=== PATIENT | female | born 1960 | race Caucasian/White ===

== ENCOUNTER 2016-11-26 12:39 | Emergency (ER) | payer OTHER ==
[~2016-11-26 12:39] MED LIST: CYCLOBENZAPRINE10 MG PO; DUONEB IN; LEVAQUIN500 MG PO; PREDNISONE20 MG PO; PROAIR HFA IN; QVAR80 MCG IN; TRAMADOL HCL50 MG PO
--- NOTE | 2016-11-26 16:07 | DIAGNOSTIC IMAGING REPORT ---
PROCEDURE: XR CHEST 2 VIEW INDICATION: COPD, initial encounter TECHNIQUE: PA and lateral view. COMPARISON: Chest x-ray 01/17/2016 FINDINGS: Hyperinflation but lungs are clear. Cardiovascular structures are normal. Two stable mild to moderate mid thoracic spine compression fractures. IMPRESSION: 1. COPD 2. No acute changes
--- NOTE | 2016-11-26 16:29 | ED ORDER SUMMARY ---
..... Patient: CHAN JEFFRIES OrderSheet [facility] VisitID: [id number] [place] [address] 56y, F Registration Date/Time: 11/26/2016 ORDER SHEET Weight: 45.3 kg (stated) Allergies: Dilaudid, IV Contrast, Neurontin, Penicillins GENERAL ORDERS: Chest 2V Urgent (14:29 11/26/2016 Binta Moreau) (Ack 14:31 IJurca ER Tech1) (15:04 HOShaughebony R.N.) MEDICATION ORDERS: DuoNeb Neb Tx 1 unit dose (NOW) (14:11/26/2016 Binta Moreau) (15:04 HOShaughebony R.N.) Prednisone PO 40 mg (NOW) (14:11/26/2016 Binta Moreau) (15:30 HOShaughebony R.N.) Levofloxacin PO 500 mg (NOW) (16:26 11/26/2016 Binta Moreau) (16:50 HOShaughreemay R.N.) IV FLUIDS: ORDER SHEET NOTES: [Electronically signed by Anjel Calvo R.N. (16:51 11/26/2016)] [Electronically signed by Ovidio Mcdowell Dr. (22:43 11/26/2016)] [Electronically locked/signed by Anjel Calvo R.N. (16:51 11/26/2016)]
--- NOTE | 2016-11-26 16:29 | ED CLINICAL REPORT ---
Clinical Report - Physicians/Mid Levels [facility] [address] [place] [address] 11/26/2016 12:40 [facility]: [id number] Time Seen: 14:19; initial patient contact. Arrived- By private vehicle. Historian- patient. HISTORY OF PRESENT ILLNESS Chief Complaint: DYSPNEA and HISTORY OF CHRONIC OBSTRUCTIVE PULMONARY DISEASE. This started about 1 week ago and is still present and worsening. It was gradual in onset. The dyspnea is described as moderate. The patient has had sputum production, a cough and wheezing. No fever, sweating episodes, chills or dyspnea on exertion. No chest pain or discomfort, calf pain, foot swelling or orthopnea. No dizziness or palpitations. Similar symptoms previously: Several times. Recent medical care: The patient was seen recently in a clinic. REVIEW OF SYSTEMS The patient has had a nasal discharge and sinus drainage. No nausea or vomiting. All systems otherwise negative, except as recorded above. PAST HISTORY Emphysema. Dyspnea. Pneumonia. COPD - Chronic Obstructive Pulmonary Disease. ADDITIONAL SURGERIES: Appendectomy. Back Surgery. Carpal Tunnel Surgery. SOCIAL HISTORY Current every day smoker. No alcohol use or drug use. ADDITIONAL NOTES The nursing notes have been reviewed with agreement regarding the chief complaint, PMH and patient medications and allergies. PHYSICAL EXAM Vital Signs: Have been reviewed as normal. Appearance: Alert. No acute distress. Eyes: Eyes normal inspection. ENT: Pharynx normal. Neck: No jugular venous distention. CVS: Normal heart rate and rhythm. Heart sounds normal. Respiratory: Mild respiratory distress with accessory muscle use and retractions. Moderately prolonged expirations. Mildly decreased air movement diffusely over both lungs. Expiratory moderate bilateral wheezes present. Skin: Skin warm and dry. Normal skin color. No rash. Extremities: No calf tenderness. No lower extremity edema. Neuro: Oriented X 3. LABS, X-RAYS, AND EKG Chest X-ray: Moderate hyperinflation present on the right and left with flattening of the diaphragm and an increased AP diameter. Consistent with COPD. Normal heart size. No infiltrate. No pneumothorax. Views: PA and lateral. Technique: good. The X-rays were independently viewed by me, interpreted contemporaneously by me and discussed with the radiologist. Interpretation time: 1450. PROGRESS AND PROCEDURES Course of Care: 16:28 11/26/16. Prednisone 40 mg PO given. DuoNeb nebulizer treatment (1 unit dose) given. Physical exam findings are improved. Symptoms much better. Disposition: Discharged home in good and improved condition. Condition: good. CLINICAL IMPRESSION 11/26/2016 13:35 BP: 119/85. HR: 81. RR: 18. O2 saturation: 96%. Pain level now: 0/10. Vital Signs: have been reviewed. Blood pressure normal. Heart rate normal. Respiratory rate normal. Oxygen saturation normal. Acute exacerbation of COPD (emphysematous) INSTRUCTIONS Your Current Medications: CONTINUE TAKING THE FOLLOWING MEDICATIONS: Albuterol Inhalation. Cyclobenzaprine HCl Oral : 3x a day. DuoNeb Inhalation. Oxygen 1.5 L /nc at night only*. ProAir HFA Inhalation. Qvar Inhalation. TraMADol HCl Oral : 3x a day, for neck pain. Prescription Medications: Albuterol HFA oral inhaler: inhale 2 puffs every 4 hours as needed for wheezing, difficulty breathing or shortness of breath. Dispense one (1) unit. No refill. Levofloxacin 500 mg: take 1 tab orally every day for 4 days. No refills. (Start on 11/27/16) Prednisone 20 mg: take 2 orally every day for 4 days. Dispense sufficient quantity. No refills. (Start on 11/27/16) Follow-up: Follow up with your doctor in about two days. Call for an appointment. Screening today revealed the patient's blood pressure to be in the normal range. (Electronically signed by Ovidio Mcdowell Dr. 11/26/2016 22:43)
--- NOTE | 2016-11-26 16:29 | ED ORDER SUMMARY ---
..... Patient: CHAN JEFFRIES OrderSheet [facility] VisitID: [id number] [place] [address] 56y, F Registration Date/Time: 11/26/2016 ORDER SHEET Weight: 45.3 kg (stated) Allergies: Dilaudid, IV Contrast, Neurontin, Penicillins GENERAL ORDERS: Chest 2V Urgent (14:29 11/26/2016 Binta Moreau) (Ack 14:31 IJurca ER Tech1) (15:04 HOShaughebony R.N.) MEDICATION ORDERS: DuoNeb Neb Tx 1 unit dose (NOW) (14:11/26/2016 Binta Moreau) (15:04 HOShaughebony R.N.) Prednisone PO 40 mg (NOW) (14:11/26/2016 Binta Moreau) (15:30 HOShaughebony R.N.) Levofloxacin PO 500 mg (NOW) (16:26 11/26/2016 Binta Moreau) (16:50 HOShaughreemay R.N.) IV FLUIDS: ORDER SHEET NOTES: [Electronically signed by Anjel Calvo R.N. (16:51 11/26/2016)] [Electronically signed by Ovidio Mcdowell Dr. (22:43 11/26/2016)] [Electronically locked/signed by Anjel Calvo R.N. (16:51 11/26/2016)]
--- NOTE | 2016-11-26 16:29 | ED NURSING NOTES ---
Clinical Report - Nurses [facility] [address] [place] [address] 11/26/2016 12:40 [id number] Triage time 1251 PM. Chief Complaint: SHORTNESS OF BREATH and DIFFICULTY BREATHING. Alert. No acute distress. --13:00 Anjel Calvo R.N. 12:50 11/26/16. BP: 90/70. HR: 87. RR: 20. O2 saturation: 100% on nasal cannula at 3 liters/minute. RN notified. Temp: 98.3 F. Pain level now: 0. --13:00 Anjel Calvo R.N. Weight: 45.3 kg stated. Height/Length: 64 inches Per Patient. BMI: 17.2. --12:56 Anjel Calvo R.N. Medications Albuterol Inhalation. Cyclobenzaprine HCl Oral, 3x a day. DuoNeb Inhalation. Oxygen 1.5 L /nc at night only. ProAir HFA Inhalation. Qvar Inhalation. TraMADol HCl Oral, 3x a day (for neck pain ). --12:52 Anjel Calvo R.N. Allergies Dilaudid. IV Contrast. Neurontin. Penicillins. --12:52 Anjel Calvo R.N. History Arrived by private vehicle. Historian: family. Accompanied by family. Onset was gradual. (about 7 days ago). Treatment KIER DRIER: Recently seen in a medical facility; treatment- breathing treatment. PAST MEDICAL HX: Chronic obstructive pulmonary disease. SOCIAL HX: Light tobacco smoker (cigarette)- less than 1/2 a pack per day. Occasional alcohol use. History of drug use. (no). FALL RISK ASSESSMENT: Fall risk assessment completed. No fall risk identified. NUTRITIONAL RISK ASSESSMENT: The nutritional risk assessment revealed no deficiencies. FUNCTIONAL ASSESSMENT: Functional assessment: no impairments noted. LEARNING NEEDS ASSESSMENT: The learning needs assessment revealed no barriers. SKIN INTEGRITY ASSESSMENT: Skin integrity risk assessment completed. No skin integrity risk identified. --13:00 Umesh, Anjel, R.N. PROBLEMS: Emphysema. Dyspnea. Pneumonia. COPD - Chronic Obstructive Pulmonary Disease. --12:52 Anjel Calvo R.N. ADDITIONAL SURGERIES: Appendectomy. Back Surgery. Carpal Tunnel Surgery. --12:52 Anjel Calvo R.N. PHYSICAL ASSESSMENT To room via wheelchair. GENERAL / NEURO / PSYCH: Alert. Oriented X 4. Appears in no acute distress. HEENT: Mucous membranes are pink. RESPIRATORY: Moderate respiratory distress. The patient can speak in full sentences. Mild accessory muscle use. Prolonged expirations. Expiratory bilateral wheezes diffusely. CVS: Normal sinus rhythm noted. Capillary refill less than 2 seconds. GI / : Abdomen soft and nontender. Bowel sounds within normal limits. SKIN: Skin is warm and dry. Normal skin turgor. --12:57 Anjel Calvo R.N. NURSING PROGRESS NOTES The initial plan of care for this patient includes an assessment with efforts to address impairment of the respiratory system. This plan of care was discussed with the patient. Call light placed in reach. Side rails up x 1. Bed placed in lowest position. Brakes of bed on. Patient ready for evaluation. --13:00 Anjel Calvo R.N. 13:35 11/26/16. BP: 119/85. HR: 81. RR: 18. O2 saturation: 96%. Pain level now: 0/10. --13:36 Anjel Calvo R.N. Patient ready for evaluation- ED physician notified. --13:36 Anjel Calvo R.N. Patient transported to radiology. ([id number]). --14:44 Anjel Calvo R.N. 15:04 11/26/2016 Duoneb (Ipratropium-Albuterol) Neb TX Nebulizer 1 unit dose given. Given by the respiratory therapist. Allergies verified and confirmed 5 rights. --15:04 Anjel Calvo R.N. 15:30 11/26/2016 Prednisone PO Tablets 40 mg given. Allergies verified and confirmed 5 rights. --15:30 Anjel Calvo R.N. 16:50 11/26/2016 Levofloxacin PO 500 mg given. Allergies verified and confirmed 5 rights. --16:50 Anjel Calvo R.N. DISPOSITION / DISCHARGE Condition at departure: improved. Discharge instructions provided and reviewed with the patient. --16:46 Anjel Calvo R.N. 16:45 11/26/16. BP: 125/58. HR: 75. RR: 20. O2 saturation: 91%. --16:46 Anjel Calvo R.N. Condition at departure: improved. The goals identified in the patient's plan of care were met. No learning barriers present. Discharge instructions provided and reviewed with the patient. Reviewed medication(s) side effects, precautions, dosing and course information. Prescription(s) given to the patient. Reviewed nebulizer use instructions. Reviewed referral to a primary care physician. Patient verbalized understanding. Written instructions provided in Lebanese. The patient was discharged home and accompanied by spouse. She left the Emergency Department ambulatory and via private vehicle. Spouse driving. FALL RISK ASSESSMENT: Fall risk assessment completed. No fall risk identified. --16:50 Anjel Calvo R.N. Departure time: 1650 PM. --16:50 Anjel Calvo R.N. Locked/Released at 11/26/2016 16:51 by Anjel Calvo R.N.
--- NOTE | 2016-11-26 16:29 | ED NURSING NOTES ---
Clinical Report - Nurses [facility] [address] [place] [address] 11/26/2016 12:40 [id number] Triage time 1251 PM. Chief Complaint: SHORTNESS OF BREATH and DIFFICULTY BREATHING. Alert. No acute distress. --13:00 Anjel Calvo R.N. 12:50 11/26/16. BP: 90/70. HR: 87. RR: 20. O2 saturation: 100% on nasal cannula at 3 liters/minute. RN notified. Temp: 98.3 F. Pain level now: 0. --13:00 Anjel Calvo R.N. Weight: 45.3 kg stated. Height/Length: 64 inches Per Patient. BMI: 17.2. --12:56 Anjel Calvo R.N. Medications Albuterol Inhalation. Cyclobenzaprine HCl Oral, 3x a day. DuoNeb Inhalation. Oxygen 1.5 L /nc at night only. ProAir HFA Inhalation. Qvar Inhalation. TraMADol HCl Oral, 3x a day (for neck pain ). --12:52 Anjel Calvo R.N. Allergies Dilaudid. IV Contrast. Neurontin. Penicillins. --12:52 Anjel Calvo R.N. History Arrived by private vehicle. Historian: family. Accompanied by family. Onset was gradual. (about 7 days ago). Treatment IN HOME NANNY: Recently seen in a medical facility; treatment- breathing treatment. PAST MEDICAL HX: Chronic obstructive pulmonary disease. SOCIAL HX: Light tobacco smoker (cigarette)- less than 1/2 a pack per day. Occasional alcohol use. History of drug use. (no). FALL RISK ASSESSMENT: Fall risk assessment completed. No fall risk identified. NUTRITIONAL RISK ASSESSMENT: The nutritional risk assessment revealed no deficiencies. FUNCTIONAL ASSESSMENT: Functional assessment: no impairments noted. LEARNING NEEDS ASSESSMENT: The learning needs assessment revealed no barriers. SKIN INTEGRITY ASSESSMENT: Skin integrity risk assessment completed. No skin integrity risk identified. --13:00 Umesh, Anjel, R.N. PROBLEMS: Emphysema. Dyspnea. Pneumonia. COPD - Chronic Obstructive Pulmonary Disease. --12:52 Anjel Calvo R.N. ADDITIONAL SURGERIES: Appendectomy. Back Surgery. Carpal Tunnel Surgery. --12:52 Anjel Calvo R.N. PHYSICAL ASSESSMENT To room via wheelchair. GENERAL / NEURO / PSYCH: Alert. Oriented X 4. Appears in no acute distress. HEENT: Mucous membranes are pink. RESPIRATORY: Moderate respiratory distress. The patient can speak in full sentences. Mild accessory muscle use. Prolonged expirations. Expiratory bilateral wheezes diffusely. CVS: Normal sinus rhythm noted. Capillary refill less than 2 seconds. GI / : Abdomen soft and nontender. Bowel sounds within normal limits. SKIN: Skin is warm and dry. Normal skin turgor. --12:57 Anjel Calvo R.N. NURSING PROGRESS NOTES The initial plan of care for this patient includes an assessment with efforts to address impairment of the respiratory system. This plan of care was discussed with the patient. Call light placed in reach. Side rails up x 1. Bed placed in lowest position. Brakes of bed on. Patient ready for evaluation. --13:00 Anjel Calvo R.N. 13:35 11/26/16. BP: 119/85. HR: 81. RR: 18. O2 saturation: 96%. Pain level now: 0/10. --13:36 Anjel Calvo R.N. Patient ready for evaluation- ED physician notified. --13:36 Anjel Calvo R.N. Patient transported to radiology. ([id number]). --14:44 Anjel Calvo R.N. 15:04 11/26/2016 Duoneb (Ipratropium-Albuterol) Neb TX Nebulizer 1 unit dose given. Given by the respiratory therapist. Allergies verified and confirmed 5 rights. --15:04 Anjel Calvo R.N. 15:30 11/26/2016 Prednisone PO Tablets 40 mg given. Allergies verified and confirmed 5 rights. --15:30 Anjel Calvo R.N. 16:50 11/26/2016 Levofloxacin PO 500 mg given. Allergies verified and confirmed 5 rights. --16:50 Anjel Calvo R.N. DISPOSITION / DISCHARGE Condition at departure: improved. Discharge instructions provided and reviewed with the patient. --16:46 nAjel Calvo R.N. 16:45 11/26/16. BP: 125/58. HR: 75. RR: 20. O2 saturation: 91%. --16:46 Anjel Calvo R.N. Condition at departure: improved. The goals identified in the patient's plan of care were met. No learning barriers present. Discharge instructions provided and reviewed with the patient. Reviewed medication(s) side effects, precautions, dosing and course information. Prescription(s) given to the patient. Reviewed nebulizer use instructions. Reviewed referral to a primary care physician. Patient verbalized understanding. Written instructions provided in Mexican. The patient was discharged home and accompanied by spouse. She left the Emergency Department ambulatory and via private vehicle. Spouse driving. FALL RISK ASSESSMENT: Fall risk assessment completed. No fall risk identified. --16:50 Anjel Calvo R.N. Departure time: 1650 PM. --16:50 Anjel Calvo R.N. Locked/Released at 11/26/2016 16:51 by Anjel Calvo R.N.
--- NOTE | 2016-11-26 22:43 | ED MED RECONCILIATION SUMMARY ---
Patient: CHAN JEFFRIES Medication Reconciliation Report [facility] VisitID: [id number] [address] [place] [address] 56y, F Registration Date/Time: 11/26/2016 Weight: 45.3 kg Height/Length: 64 in. BMI: 17.2 ALLERGIES: Dilaudid, IV Contrast, Neurontin, Penicillins The patient's Home Medications are listed below: CONTINUE TAKING THE FOLLOWING MEDICATIONS: Albuterol Inhalation Cyclobenzaprine HCl Oral, 3x a day DuoNeb Inhalation Oxygen 1.5 L /nc at night only ProAir HFA Inhalation Qvar Inhalation TraMADol HCl Oral, 3x a day, for neck pain The source(s) of the original Home Medication information: Not obtained. The following Medications were given to the patient in the Emergency Department: Duoneb [Neb Tx] Neb TX 1 unit dose, administered: 11/26/2016 3:04:00 PM Prednisone [PO] PO 40 mg, administered: 11/26/2016 3:30:00 PM Levofloxacin [PO] PO 500 mg, administered: 11/26/2016 4:50:00 PM The following Medications were prescribed to the patient: Albuterol HFA oral inhaler: inhale 2 puffs every 4 hours as needed for wheezing, difficulty breathing or shortness of breath. Dispense one (1) unit. No refill. -- Ovidio Mcdowell Dr. Levofloxacin 500 mg: take 1 tab orally every day for 4 days. No refills.(Start on 11/27/16) -- Ovidio Mcdowell Dr. Prednisone 20 mg: take 2 orally every day for 4 days. Dispense sufficient quantity. No refills.(Start on 11/27/16) -- Ovidio Mcdowell Dr.
--- NOTE | 2016-11-26 22:43 | ED DISCHARGE INSTRUCTIONS ---
Patient: CHAN JEFFRIES General Instructions [facility] VisitID: [id number] [place] [address] 56y, F Registration Date/Time: 11/26/2016 11/26/2016 13:35 BP: 119/85. HR: 81. RR: 18. O2 saturation: 96%. Pain level now: 0/10. Vital Signs: have been reviewed. Blood pressure normal. Heart rate normal. Respiratory rate normal. Oxygen saturation normal. Acute exacerbation of COPD (emphysematous) INSTRUCTIONS Your Current Medications: CONTINUE TAKING THE FOLLOWING MEDICATIONS: Albuterol Inhalation. Cyclobenzaprine HCl Oral : 3x a day. DuoNeb Inhalation. Oxygen 1.5 L /nc at night only*. ProAir HFA Inhalation. Qvar Inhalation. TraMADol HCl Oral : 3x a day, for neck pain. Prescription Medications: Albuterol HFA oral inhaler: inhale 2 puffs every 4 hours as needed for wheezing, difficulty breathing or shortness of breath. Dispense one (1) unit. No refill. Levofloxacin 500 mg: take 1 tab orally every day for 4 days. No refills. (Start on 11/27/16) Prednisone 20 mg: take 2 orally every day for 4 days. Dispense sufficient quantity. No refills. (Start on 11/27/16) Follow-up: Follow up with your doctor in about two days. Call for an appointment. Screening today revealed the patient's blood pressure to be in the normal range. ADDITIONAL INFORMATION COPD Flare Both emphysema and chronic bronchitis are forms of chronic obstructive pulmonary disease (COPD). It is most often caused by many years of smoking tobacco. Many things can make your lung disease suddenly get worse. These causes include the common cold, pneumonia, acute bronchitis, missing doses of your regular breathing medicines, or being around smoke, dust, or other air pollutants. A COPD flare may last 7 to 14 days. Your doctor may prescribe medicineto relax your airways and prevent wheezing. Your doctor may also prescribe antibiotics if he or she thinks you havea bacterial infection. Prednisone can helpease inflammation in a severe attack. Home care Here are things you can do at home: Drink lots of water or other fluids (at least 10 glasses a day) during an attack. This will loosen lung secretions and make it easier to breathe. If you have heart or kidney disease, check with your doctor before you drink extra amounts of fluids. Take prescribed medicine exactly at the times advised. If you have a hand-held inhaler or aerosol breathing medicine, don't use it more than once every 4 hours, unless your doctor tells you to. If you were givenan antibiotic or prednisone, take all of the medicine even if you are feeling better after a few days. Don't smoke. Avoid being aroundthe smoke of others. If you were given an inhaler, use it exactly as directed. If you need to use it more often than prescribed, your condition may be getting worse. Call your doctor. Follow-up care Follow up with your health care provider.If you are 65 or older or have chronic asthma or COPD, you should get a single dose of the pneumococcal vaccine and aflu shot each year. You may need a second dose of the pneumococcal vaccine if you had the first dose at a younger age. Your health care provider will let you know if you need a second dose. For all other people, the usual dose for the pneumococcal vaccine is 1 or 2 shots. Yourprovider can discuss this with you. When to seek medical care Get prompt medical attention ifany of these occur: Increased wheezing or shortness of breath Need to use your inhalers more often than usual without relief Fever of 100.4F(38C) or higher, or as directed by your health care provider Coughing up lots of dark-colored or bloody sputum (mucus) Chest pain with each breath You do not start to improve within 24 hours Albuterol Sulfate Pressurized inhalation, suspension What is this medicine? ALBUTEROL (al BYOO ter ole) is a bronchodilator. It helps open up the airways in your lungs to make it easier to breathe. This medicine is used to treat and to prevent bronchospasm. How should I use this medicine? This medicine is for inhalation through the mouth. Follow the directions on your prescription label. Take your medicine at regular intervals. Do not use more often than directed. Make sure that you are using your inhaler correctly. Ask you doctor or health care provider if you have any questions. Talk to your air traffic control specialist regarding the use of this medicine in children. Special care may be needed. What side effects may I notice from receiving this medicine? Side effects that you should report to your doctor or health clinical care manager as soon as possible: allergic reactions like skin rash, itching or hives, swelling of the face, lips, or tongue breathing problems chest pain feeling faint or lightheaded, falls high blood pressure irregular heartbeat fever muscle cramps or weakness pain, tingling, numbness in the hands or feet vomiting Side effects that usually do not require medical attention (report to your doctor or health clinical care manager if they continue or are bothersome): cough difficulty sleeping headache nervousness or trembling stomach upset stuffy or runny nose throat irritation unusual taste What may interact with this medicine? anti-infectives like chloroquine and pentamidine caffeine cisapride diuretics medicines for colds medicines for depression or for emotional or psychotic conditions medicines for weight loss including some herbal products methadone some antibiotics like clarithromycin, erythromycin, levofloxacin, and linezolid some heart medicines steroid hormones like dexamethasone, cortisone, hydrocortisone theophylline thyroid hormones What if I miss a dose? If you miss a dose, use it as soon as you can. If it is almost time for your next dose, use only that dose. Do not use double or extra doses. Where should I keep my medicine? Keep out of the reach of children. Store at room temperature between 15 and 30 degrees C (59 and 86 degrees F). The contents are under pressure and may burst when exposed to heat or flame. Do not freeze. This medicine does not work as well if it is too cold. Throw away any unused medicine after the expiration date. Inhalers need to be thrown away after the labeled number of puffs have been used or by the expiration date; whichever comes first. Ventolin HFA should be thrown away 12 months after removing from foil pouch. Check the instructions that come with your medicine. What should I tell my health care provider before I take this medicine? They need to know if you have any of the following conditions: diabetes heart disease or irregular heartbeat high blood pressure pheochromocytoma seizures thyroid disease an unusual or allergic reaction to albuterol, levalbuterol, sulfites, other medicines, foods, dyes, or preservatives or trying to get breast-feeding What should I watch for while using this medicine? Tell your doctor or health clinical care manager if your symptoms do not improve. Do not use extra albuterol. If your asthma or bronchitis gets worse while you are using this medicine, call your doctor right away. If your mouth gets dry try chewing sugarless gum or sucking hard candy. Drink water as directed. Levofloxacin Oral tablet What is this medicine? LEVOFLOXACIN (tj shafer BLAZE stanley christa) is a quinolone antibiotic. It is used to treat certain kinds of bacterial infections. It will not work for colds, flu, or other viral infections. How should I use this medicine? Take this medicine by mouth with a full glass of water. Follow the directions on the prescription label. This medicine can be taken with or without food. Take your medicine at regular intervals. Do not take your medicine more often than directed. Do not skip doses or stop your medicine early even if you feel better. Do not stop taking except on your doctor's advice. A special MedGuide will be given to you by the pharmacist with each prescription and refill. Be sure to read this information carefully each time. Talk to your air traffic control specialist regarding the use of this medicine in children. While this drug may be prescribed for children as young as 6 months for selected conditions, precautions do apply. What side effects may I notice from receiving this medicine? Side effects that you should report to your doctor or health clinical care manager as soon as possible: -allergic reactions like skin rash or hives, swelling of the face, lips, or tongue -changes in vision -confusion, nightmares or hallucinations -difficulty breathing -irregular heartbeat, chest pain -joint, muscle or tendon pain -pain or difficulty passing urine -persistent headache with or without blurred vision -redness, blistering, peeling or loosening of the skin, including inside the mouth -seizures -unusual pain, numbness, tingling, or weakness -vaginal irritation, discharge Side effects that usually do not require medical attention (report to your doctor or health clinical care manager if they continue or are bothersome): -diarrhea -dry mouth -headache -stomach upset, nausea -trouble sleeping What may interact with this medicine? Do not take this medicine with any of the following medications: - arsenic trioxide - chloroquine - droperidol - medicines for irregular heart rhythm like amiodarone, disopyramide, dofetilide, flecainide, quinidine, procainamide, sotalol - some medicines for depression or mental problems like phenothiazines, pimozide, and ziprasidone This medicine may also interact with the following medications: - amoxapine -antacids - cisapride - dairy products - didanosine (ddI) buffered tablets or powder - haloperidol - multivitamins -NSAIDS, medicines for pain and inflammation, like ibuprofen or naproxen - retinoid products like tretinoin or isotretinoin - risperidone - some other antibiotics like clarithromycin or erythromycin - sucralfate - theophylline - warfarin What if I miss a dose? If you miss a dose, take it as soon as you remember. If it is almost time for your next dose, take only that dose. Do not take double or extra doses. Where should I keep my medicine? Keep out of the reach of children. Store at room temperature between 15 and 30 degrees C (59 and 86 degrees F). Keep in a tightly closed container. Throw away any unused medicine after the expiration date. What should I tell my health care provider before I take this medicine? They need to know if you have any of these conditions: cerebral disease irregular heartbeat kidney disease seizure disorder an unusual or allergic reaction to levofloxacin, other antibiotics or medicines, foods, dyes, or preservatives or trying to get breast-feeding What should I watch for while using this medicine? Tell your doctor or health clinical care manager if your symptoms do not improve or if they get worse. Drink several glasses of water a day and cut down on drinks that contain caffeine. You must not get dehydrated while taking this medicine. You may get drowsy or dizzy. Do not drive, use machinery, or do anything that needs mental alertness until you know how this medicine affects you. Do not sit or stand up quickly, especially if you are an older patient. This reduces the risk of dizzy or fainting spells. This medicine can make you more sensitive to the sun. Keep out of the sun. If you cannot avoid being in the sun, wear protective clothing and use a sunscreen. Do not use sun lamps or tanning beds/booths. Contact your doctor if you get a sunburn. If you are a diabetic monitor your blood glucose carefully. If you get an unusual reading stop taking this medicine and call your doctor right away. Do not treat diarrhea with [id number] products. Contact your doctor if you have diarrhea that lasts more than 2 days or if the diarrhea is severe and watery. Avoid antacids, calcium, iron, and zinc products for 2 hours before and 2 hours after taking a dose of this medicine. Prednisone Oral tablet What is this medicine? PREDNISONE (PRED ni sone) is a corticosteroid. It is commonly used to treat inflammation of the skin, joints, lungs, and other organs. Common conditions treated include asthma, allergies, and arthritis. It is also used for other conditions, such as blood disorders and diseases of the adrenal glands. How should I use this medicine? Take this medicine by mouth with a glass of water. Follow the directions on the prescription label. Take this medicine with food. If you are taking this medicine once a day, take it in the morning. Do not take more medicine than you are told to take. Do not suddenly stop taking your medicine because you may develop a severe reaction. Your doctor will tell you how much medicine to take. If your doctor wants you to stop the medicine, the dose may be slowly lowered over time to avoid any side effects. Talk to your air traffic control specialist regarding the use of this medicine in children. Special care may be needed. What side effects may I notice from receiving this medicine? Side effects that you should report to your doctor or health clinical care manager as soon as possible: allergic reactions like skin rash, itching or hives, swelling of the face, lips, or tongue changes in emotions or moods changes in vision depressed mood eye pain fever or chills, cough, sore throat, pain or difficulty passing urine increased thirst swelling of ankles, feet Side effects that usually do not require medical attention (report to your doctor or health clinical care manager if they continue or are bothersome): confusion, excitement, restlessness headache nausea, vomiting skin problems, acne, thin and shiny skin trouble sleeping weight gain What may interact with this medicine? Do not take this medicine with any of the following medications: metyrapone mifepristone This medicine may also interact with the following medications: aminoglutethimide amphotericin B aspirin and aspirin-like medicines barbiturates certain medicines for diabetes, like glipizide or glyburide cholestyramine cholinesterase inhibitors cyclosporine digoxin diuretics ephedrine female hormones, like estrogens and control pills isoniazid ketoconazole NSAIDS, medicines for pain and inflammation, like ibuprofen or naproxen phenytoin rifampin toxoids vaccines warfarin What if I miss a dose? If you miss a dose, take it as soon as you can. If it is almost time for your next dose, talk to your doctor or health clinical care manager. You may need to miss a dose or take an extra dose. Do not take double or extra doses without advice. Where should I keep my medicine? Keep out of the reach of children. Store at room temperature between 15 and 30 degrees C (59 and 86 degrees F). Protect from light. Keep container tightly closed. Throw away any unused medicine after the expiration date. What should I tell my health care provider before I take this medicine? They need to know if you have any of these conditions: Katlyn's syndrome diabetes glaucoma heart disease high blood pressure infection (especially a virus infection such as chickenpox, cold sores, or herpes) kidney disease liver disease mental illness myasthenia gravis osteoporosis seizures stomach or intestine problems thyroid disease an unusual or allergic reaction to lactose, prednisone, other medicines, foods, dyes, or preservatives or trying to get breast-feeding What should I watch for while using this medicine? Visit your doctor or health clinical care manager for regular checks on your progress. If you are taking this medicine over a prolonged period, carry an identification card with your name and address, the type and dose of your medicine, and your doctor's name and address. This medicine may increase your risk of getting an infection. Tell your doctor or health clinical care manager if you are around anyone with measles or chickenpox, or if you develop sores or blisters that do not heal properly. If you are going to have surgery, tell your doctor or health clinical care manager that you have taken this medicine within the last twelve months. Ask your doctor or health clinical care manager about your diet. You may need to lower the amount of salt you eat. This medicine may affect blood sugar levels. If you have diabetes, check with your doctor or health clinical care manager before you change your diet or the dose of your diabetic medicine. You have been given the following additional information: COPD Flare Albuterol Sulfate Pressurized inhalation, suspension Levofloxacin Oral tablet Prednisone Oral tablet (Electronically signed by Ovidio Mcdowell Dr. 11/26/2016 22:43)
--- NOTE | 2016-11-26 22:43 | ED MED RECONCILIATION SUMMARY ---
Patient: CHAN JEFFRIES Medication Reconciliation Report [facility] VisitID: [id number] [address] [place] [address] 56y, F Registration Date/Time: 11/26/2016 Weight: 45.3 kg Height/Length: 64 in. BMI: 17.2 ALLERGIES: Dilaudid, IV Contrast, Neurontin, Penicillins The patient's Home Medications are listed below: CONTINUE TAKING THE FOLLOWING MEDICATIONS: Albuterol Inhalation Cyclobenzaprine HCl Oral, 3x a day DuoNeb Inhalation Oxygen 1.5 L /nc at night only ProAir HFA Inhalation Qvar Inhalation TraMADol HCl Oral, 3x a day, for neck pain The source(s) of the original Home Medication information: Not obtained. The following Medications were given to the patient in the Emergency Department: Duoneb [Neb Tx] Neb TX 1 unit dose, administered: 11/26/2016 3:04:00 PM Prednisone [PO] PO 40 mg, administered: 11/26/2016 3:30:00 PM Levofloxacin [PO] PO 500 mg, administered: 11/26/2016 4:50:00 PM The following Medications were prescribed to the patient: Albuterol HFA oral inhaler: inhale 2 puffs every 4 hours as needed for wheezing, difficulty breathing or shortness of breath. Dispense one (1) unit. No refill. -- Ovidio Mcdowell Dr. Levofloxacin 500 mg: take 1 tab orally every day for 4 days. No refills.(Start on 11/27/16) -- Ovidio Mcdowell Dr. Prednisone 20 mg: take 2 orally every day for 4 days. Dispense sufficient quantity. No refills.(Start on 11/27/16) -- Ovidio Mcdowell Dr.
--- NOTE | 2016-11-26 22:43 | ED DISCHARGE INSTRUCTIONS ---
Patient: CHAN JEFFRIES General Instructions [facility] VisitID: [id number] [place] [address] 56y, F Registration Date/Time: 11/26/2016 11/26/2016 13:35 BP: 119/85. HR: 81. RR: 18. O2 saturation: 96%. Pain level now: 0/10. Vital Signs: have been reviewed. Blood pressure normal. Heart rate normal. Respiratory rate normal. Oxygen saturation normal. Acute exacerbation of COPD (emphysematous) INSTRUCTIONS Your Current Medications: CONTINUE TAKING THE FOLLOWING MEDICATIONS: Albuterol Inhalation. Cyclobenzaprine HCl Oral : 3x a day. DuoNeb Inhalation. Oxygen 1.5 L /nc at night only*. ProAir HFA Inhalation. Qvar Inhalation. TraMADol HCl Oral : 3x a day, for neck pain. Prescription Medications: Albuterol HFA oral inhaler: inhale 2 puffs every 4 hours as needed for wheezing, difficulty breathing or shortness of breath. Dispense one (1) unit. No refill. Levofloxacin 500 mg: take 1 tab orally every day for 4 days. No refills. (Start on 11/27/16) Prednisone 20 mg: take 2 orally every day for 4 days. Dispense sufficient quantity. No refills. (Start on 11/27/16) Follow-up: Follow up with your doctor in about two days. Call for an appointment. Screening today revealed the patient's blood pressure to be in the normal range. ADDITIONAL INFORMATION COPD Flare Both emphysema and chronic bronchitis are forms of chronic obstructive pulmonary disease (COPD). It is most often caused by many years of smoking tobacco. Many things can make your lung disease suddenly get worse. These causes include the common cold, pneumonia, acute bronchitis, missing doses of your regular breathing medicines, or being around smoke, dust, or other air pollutants. A COPD flare may last 7 to 14 days. Your doctor may prescribe medicineto relax your airways and prevent wheezing. Your doctor may also prescribe antibiotics if he or she thinks you havea bacterial infection. Prednisone can helpease inflammation in a severe attack. Home care Here are things you can do at home: Drink lots of water or other fluids (at least 10 glasses a day) during an attack. This will loosen lung secretions and make it easier to breathe. If you have heart or kidney disease, check with your doctor before you drink extra amounts of fluids. Take prescribed medicine exactly at the times advised. If you have a hand-held inhaler or aerosol breathing medicine, don't use it more than once every 4 hours, unless your doctor tells you to. If you were givenan antibiotic or prednisone, take all of the medicine even if you are feeling better after a few days. Don't smoke. Avoid being aroundthe smoke of others. If you were given an inhaler, use it exactly as directed. If you need to use it more often than prescribed, your condition may be getting worse. Call your doctor. Follow-up care Follow up with your health care provider.If you are 65 or older or have chronic asthma or COPD, you should get a single dose of the pneumococcal vaccine and aflu shot each year. You may need a second dose of the pneumococcal vaccine if you had the first dose at a younger age. Your health care provider will let you know if you need a second dose. For all other people, the usual dose for the pneumococcal vaccine is 1 or 2 shots. Yourprovider can discuss this with you. When to seek medical care Get prompt medical attention ifany of these occur: Increased wheezing or shortness of breath Need to use your inhalers more often than usual without relief Fever of 100.4F(38C) or higher, or as directed by your health care provider Coughing up lots of dark-colored or bloody sputum (mucus) Chest pain with each breath You do not start to improve within 24 hours Albuterol Sulfate Pressurized inhalation, suspension What is this medicine? ALBUTEROL (al BYOO ter ole) is a bronchodilator. It helps open up the airways in your lungs to make it easier to breathe. This medicine is used to treat and to prevent bronchospasm. How should I use this medicine? This medicine is for inhalation through the mouth. Follow the directions on your prescription label. Take your medicine at regular intervals. Do not use more often than directed. Make sure that you are using your inhaler correctly. Ask you doctor or health care provider if you have any questions. Talk to your repairer screen crusher regarding the use of this medicine in children. Special care may be needed. What side effects may I notice from receiving this medicine? Side effects that you should report to your doctor or health acute care nursing assistant as soon as possible: allergic reactions like skin rash, itching or hives, swelling of the face, lips, or tongue breathing problems chest pain feeling faint or lightheaded, falls high blood pressure irregular heartbeat fever muscle cramps or weakness pain, tingling, numbness in the hands or feet vomiting Side effects that usually do not require medical attention (report to your doctor or health acute care nursing assistant if they continue or are bothersome): cough difficulty sleeping headache nervousness or trembling stomach upset stuffy or runny nose throat irritation unusual taste What may interact with this medicine? anti-infectives like chloroquine and pentamidine caffeine cisapride diuretics medicines for colds medicines for depression or for emotional or psychotic conditions medicines for weight loss including some herbal products methadone some antibiotics like clarithromycin, erythromycin, levofloxacin, and linezolid some heart medicines steroid hormones like dexamethasone, cortisone, hydrocortisone theophylline thyroid hormones What if I miss a dose? If you miss a dose, use it as soon as you can. If it is almost time for your next dose, use only that dose. Do not use double or extra doses. Where should I keep my medicine? Keep out of the reach of children. Store at room temperature between 15 and 30 degrees C (59 and 86 degrees F). The contents are under pressure and may burst when exposed to heat or flame. Do not freeze. This medicine does not work as well if it is too cold. Throw away any unused medicine after the expiration date. Inhalers need to be thrown away after the labeled number of puffs have been used or by the expiration date; whichever comes first. Ventolin HFA should be thrown away 12 months after removing from foil pouch. Check the instructions that come with your medicine. What should I tell my health care provider before I take this medicine? They need to know if you have any of the following conditions: diabetes heart disease or irregular heartbeat high blood pressure pheochromocytoma seizures thyroid disease an unusual or allergic reaction to albuterol, levalbuterol, sulfites, other medicines, foods, dyes, or preservatives or trying to get breast-feeding What should I watch for while using this medicine? Tell your doctor or health acute care nursing assistant if your symptoms do not improve. Do not use extra albuterol. If your asthma or bronchitis gets worse while you are using this medicine, call your doctor right away. If your mouth gets dry try chewing sugarless gum or sucking hard candy. Drink water as directed. Levofloxacin Oral tablet What is this medicine? LEVOFLOXACIN (tj shafer BLAZE stanley christa) is a quinolone antibiotic. It is used to treat certain kinds of bacterial infections. It will not work for colds, flu, or other viral infections. How should I use this medicine? Take this medicine by mouth with a full glass of water. Follow the directions on the prescription label. This medicine can be taken with or without food. Take your medicine at regular intervals. Do not take your medicine more often than directed. Do not skip doses or stop your medicine early even if you feel better. Do not stop taking except on your doctor's advice. A special MedGuide will be given to you by the pharmacist with each prescription and refill. Be sure to read this information carefully each time. Talk to your repairer screen crusher regarding the use of this medicine in children. While this drug may be prescribed for children as young as 6 months for selected conditions, precautions do apply. What side effects may I notice from receiving this medicine? Side effects that you should report to your doctor or health acute care nursing assistant as soon as possible: -allergic reactions like skin rash or hives, swelling of the face, lips, or tongue -changes in vision -confusion, nightmares or hallucinations -difficulty breathing -irregular heartbeat, chest pain -joint, muscle or tendon pain -pain or difficulty passing urine -persistent headache with or without blurred vision -redness, blistering, peeling or loosening of the skin, including inside the mouth -seizures -unusual pain, numbness, tingling, or weakness -vaginal irritation, discharge Side effects that usually do not require medical attention (report to your doctor or health acute care nursing assistant if they continue or are bothersome): -diarrhea -dry mouth -headache -stomach upset, nausea -trouble sleeping What may interact with this medicine? Do not take this medicine with any of the following medications: - arsenic trioxide - chloroquine - droperidol - medicines for irregular heart rhythm like amiodarone, disopyramide, dofetilide, flecainide, quinidine, procainamide, sotalol - some medicines for depression or mental problems like phenothiazines, pimozide, and ziprasidone This medicine may also interact with the following medications: - amoxapine -antacids - cisapride - dairy products - didanosine (ddI) buffered tablets or powder - haloperidol - multivitamins -NSAIDS, medicines for pain and inflammation, like ibuprofen or naproxen - retinoid products like tretinoin or isotretinoin - risperidone - some other antibiotics like clarithromycin or erythromycin - sucralfate - theophylline - warfarin What if I miss a dose? If you miss a dose, take it as soon as you remember. If it is almost time for your next dose, take only that dose. Do not take double or extra doses. Where should I keep my medicine? Keep out of the reach of children. Store at room temperature between 15 and 30 degrees C (59 and 86 degrees F). Keep in a tightly closed container. Throw away any unused medicine after the expiration date. What should I tell my health care provider before I take this medicine? They need to know if you have any of these conditions: cerebral disease irregular heartbeat kidney disease seizure disorder an unusual or allergic reaction to levofloxacin, other antibiotics or medicines, foods, dyes, or preservatives or trying to get breast-feeding What should I watch for while using this medicine? Tell your doctor or health acute care nursing assistant if your symptoms do not improve or if they get worse. Drink several glasses of water a day and cut down on drinks that contain caffeine. You must not get dehydrated while taking this medicine. You may get drowsy or dizzy. Do not drive, use machinery, or do anything that needs mental alertness until you know how this medicine affects you. Do not sit or stand up quickly, especially if you are an older patient. This reduces the risk of dizzy or fainting spells. This medicine can make you more sensitive to the sun. Keep out of the sun. If you cannot avoid being in the sun, wear protective clothing and use a sunscreen. Do not use sun lamps or tanning beds/booths. Contact your doctor if you get a sunburn. If you are a diabetic monitor your blood glucose carefully. If you get an unusual reading stop taking this medicine and call your doctor right away. Do not treat diarrhea with [id number] products. Contact your doctor if you have diarrhea that lasts more than 2 days or if the diarrhea is severe and watery. Avoid antacids, calcium, iron, and zinc products for 2 hours before and 2 hours after taking a dose of this medicine. Prednisone Oral tablet What is this medicine? PREDNISONE (PRED ni sone) is a corticosteroid. It is commonly used to treat inflammation of the skin, joints, lungs, and other organs. Common conditions treated include asthma, allergies, and arthritis. It is also used for other conditions, such as blood disorders and diseases of the adrenal glands. How should I use this medicine? Take this medicine by mouth with a glass of water. Follow the directions on the prescription label. Take this medicine with food. If you are taking this medicine once a day, take it in the morning. Do not take more medicine than you are told to take. Do not suddenly stop taking your medicine because you may develop a severe reaction. Your doctor will tell you how much medicine to take. If your doctor wants you to stop the medicine, the dose may be slowly lowered over time to avoid any side effects. Talk to your repairer screen crusher regarding the use of this medicine in children. Special care may be needed. What side effects may I notice from receiving this medicine? Side effects that you should report to your doctor or health acute care nursing assistant as soon as possible: allergic reactions like skin rash, itching or hives, swelling of the face, lips, or tongue changes in emotions or moods changes in vision depressed mood eye pain fever or chills, cough, sore throat, pain or difficulty passing urine increased thirst swelling of ankles, feet Side effects that usually do not require medical attention (report to your doctor or health acute care nursing assistant if they continue or are bothersome): confusion, excitement, restlessness headache nausea, vomiting skin problems, acne, thin and shiny skin trouble sleeping weight gain What may interact with this medicine? Do not take this medicine with any of the following medications: metyrapone mifepristone This medicine may also interact with the following medications: aminoglutethimide amphotericin B aspirin and aspirin-like medicines barbiturates certain medicines for diabetes, like glipizide or glyburide cholestyramine cholinesterase inhibitors cyclosporine digoxin diuretics ephedrine female hormones, like estrogens and control pills isoniazid ketoconazole NSAIDS, medicines for pain and inflammation, like ibuprofen or naproxen phenytoin rifampin toxoids vaccines warfarin What if I miss a dose? If you miss a dose, take it as soon as you can. If it is almost time for your next dose, talk to your doctor or health acute care nursing assistant. You may need to miss a dose or take an extra dose. Do not take double or extra doses without advice. Where should I keep my medicine? Keep out of the reach of children. Store at room temperature between 15 and 30 degrees C (59 and 86 degrees F). Protect from light. Keep container tightly closed. Throw away any unused medicine after the expiration date. What should I tell my health care provider before I take this medicine? They need to know if you have any of these conditions: Katlyn's syndrome diabetes glaucoma heart disease high blood pressure infection (especially a virus infection such as chickenpox, cold sores, or herpes) kidney disease liver disease mental illness myasthenia gravis osteoporosis seizures stomach or intestine problems thyroid disease an unusual or allergic reaction to lactose, prednisone, other medicines, foods, dyes, or preservatives or trying to get breast-feeding What should I watch for while using this medicine? Visit your doctor or health acute care nursing assistant for regular checks on your progress. If you are taking this medicine over a prolonged period, carry an identification card with your name and address, the type and dose of your medicine, and your doctor's name and address. This medicine may increase your risk of getting an infection. Tell your doctor or health acute care nursing assistant if you are around anyone with measles or chickenpox, or if you develop sores or blisters that do not heal properly. If you are going to have surgery, tell your doctor or health acute care nursing assistant that you have taken this medicine within the last twelve months. Ask your doctor or health acute care nursing assistant about your diet. You may need to lower the amount of salt you eat. This medicine may affect blood sugar levels. If you have diabetes, check with your doctor or health acute care nursing assistant before you change your diet or the dose of your diabetic medicine. You have been given the following additional information: COPD Flare Albuterol Sulfate Pressurized inhalation, suspension Levofloxacin Oral tablet Prednisone Oral tablet (Electronically signed by Ovidio Mcdowell Dr. 11/26/2016 22:43)
--- NOTE | 2016-11-26 22:43 | ED MAR SUMMARY ---
..... Medication Administration Record [facility] [address] [place] [address] Patient: CHAN JEFFRIES Visit ID: [id number] 56y, F Weight: 45.3 kg Height/Length: 64 in BMI: 17.2 ALLERGIES: Dilaudid, IV Contrast, Neurontin, Penicillins Given 15:04 11/26/2016 Anjel Calvo R.N. Medication Administered: DUONEB [NEB TX] (IPRATROPIUM-ALBUTEROL), Dose: 1 unit dose Nebulizer Neb TX. Medication Ordered: DuoNeb Neb Tx 1 unit dose (NOW). Given 15:30 11/26/2016 Anjel Calvo R.N. Medication Administered: PREDNISONE [PO], Dose: 40 mg Tablets PO. Medication Ordered: Prednisone PO 40 mg (NOW). Given 16:50 11/26/2016 Anjel Calvo R.N. Medication Administered: LEVOFLOXACIN [PO], Dose: 500 mg PO. Medication Ordered: Levofloxacin PO 500 mg (NOW).
--- NOTE | 2016-11-26 22:43 | ED MAR SUMMARY ---
..... Medication Administration Record [facility] [address] [place] [address] Patient: CHAN JEFFRIES Visit ID: [id number] 56y, F Weight: 45.3 kg Height/Length: 64 in BMI: 17.2 ALLERGIES: Dilaudid, IV Contrast, Neurontin, Penicillins Given 15:04 11/26/2016 Anjel Calvo R.N. Medication Administered: DUONEB [NEB TX] (IPRATROPIUM-ALBUTEROL), Dose: 1 unit dose Nebulizer Neb TX. Medication Ordered: DuoNeb Neb Tx 1 unit dose (NOW). Given 15:30 11/26/2016 Anjel Calvo R.N. Medication Administered: PREDNISONE [PO], Dose: 40 mg Tablets PO. Medication Ordered: Prednisone PO 40 mg (NOW). Given 16:50 11/26/2016 Anjel Calvo R.N. Medication Administered: LEVOFLOXACIN [PO], Dose: 500 mg PO. Medication Ordered: Levofloxacin PO 500 mg (NOW).
== END 2016-11-26 16:52 | disposition home or self-care (01) ==
LOC: ED SRH 12:39
DX: J44.1 Chronic obstructive pulmonary disease with (acute) exacerbation (principal); Z88.5 Allergy status to narcotic agent; Z88.0 Allergy status to penicillin; Z91.041 Radiographic dye allergy status; Z88.8 Allergy status to other drugs, medicaments and biological substances; F17.210 Nicotine dependence, cigarettes, uncomplicated

== ENCOUNTER 2017-04-09 12:12 | Emergency (ER) | payer OTHER ==
--- NOTE | 2017-04-09 12:58 | DIAGNOSTIC IMAGING REPORT ---
PROCEDURE: XR CHEST 1 VIEW INDICATION: SHORTNESS OF BREATH TECHNIQUE: Portable AP view 12:38 p.m. COMPARISON: Chest 11/26/2016 and 01/17/2016 FINDINGS: Bibasilar infiltrates and a right pleural effusion. Heart and mediastinum are normal. Thorax is normal. IMPRESSION: 1. Bibasilar infiltrates and a right pleural effusion. 2. Results discussed with Dr. Mcdowell at 12:45 p.m.
--- NOTE | 2017-04-09 16:31 | ED NURSING NOTES ---
Clinical Report - Nurses [facility] [address] [place] [address] 04/09/2017 12:13 Patient: CHAN JEFFRIES [facility]#: [id number] TRIAGE Triage time 12:13. Acuity: LEVEL 2. Chief Complaint: ALTERED MENTAL STATUS. 12:13 04/09/17. 12:14 04/09/17. ( Per EMS pt was last normal at 0330, went to say good bye to boyfriend before he went to work, pt went back to bed, fell asleep, usually wakes up at 0830, mother had to wake pt up at 1130 with AMS. At scene, pt was combative to EMS staff with AMS. Pt found with 62% SPO2). SEPSIS SCREEN: Sepsis Screen. Negative (no infection suspected/documented). PATRICK COMA SCORE: [place] Coma Scale: 13- eyes open spontaneously (4); best verbal response- disoriented (4); best motor response- localizes to pain (5). --12:27 Mando Hidalgo R.N. 12:23 04/09/17. BP: 104/68. HR: 87. RR: 20. O2 saturation: 90%. Temp: 97.9 F (oral). Additional comments: On Neb treatment. --12:27 Mando Hidalgo R.N. Weight: 44.9 kg measured. Height/Length: 61 inches Measured. BMI: 18.7. --12:22 Mando Hidalgo R.N. Medications Albuterol Inhalation, as needed, 2 puffs every 6 hrs. Cyclobenzaprine HCl Oral 10 mg, 3x a day as needed. Qvar Inhalation (Aerosol Solution 80 mcg/act). TraMADol HCl Oral 50mg, daily as needed, Every 4 hours/6 tabs a day (for neck pain ). --12:24 Mando Hidalgo R.N. DuoNeb Inhalation. Oxygen 1.5 L /nc at night only. ProAir HFA Inhalation. --12:24 Mando Hidalgo R.N. PredniSONE Oral 40 mg, daily. --12:43 Mando Hidalgo R.N. Gabapentin Oral 300 mg, 3x a day. --12:44 Mando Hidalgo R.N. Alendronate Sodium Oral 70mg, weekly. --12:44 Mando Hidalgo R.N. Motrin Oral, as needed. --12:45 Mando Hidalgo R.N. Combivent Respimat Inhalation (Aerosol Solution 20-100 mcg/act) 1 puff, 4 times a day. --12:47 Mando Hidalgo R.N. DuoNeb. --12:47 Mando Hidalgo R.N. The following entry was struck and corrected by Mando Hidalgo R.N., 12:47 (04/09/17) Reason for correction - other(correction). <<STRICKEN ENTRY-- Qvar Inhalation. --12:24 Mando Hidalgo R.N. --END STRIKE>> The following entry was struck and corrected by Mando Hidalgo R.N., 12:46 (04/09/17) Reason for correction - other(correction). <<STRICKEN ENTRY-- Cyclobenzaprine HCl Oral, 3x a day. --12:24 Mando Hidalgo R.N. --END STRIKE>> The following entry was struck and corrected by Mando Hidalgo R.N., 12:43 (04/09/17) Reason for correction - other(correction). <<STRICKEN ENTRY-- Albuterol Inhalation. --12:24 Mando Hidalgo R.N. --END STRIKE>> The following entry was struck and corrected by Mando Hidalgo R.N., 12:31 (04/09/17) Reason for correction - other(correction). <<STRICKEN ENTRY-- TraMADol HCl Oral, 3x a day (for neck pain ). --12:24 Mando Hidalgo R.N. --END STRIKE>>. Medication/allergy information source: EMS. --12:27 Mando Hidalgo R.N. Allergies Dilaudid. IV Contrast. Neurontin. Penicillins. --12:24 Mando Hidalgo R.N. History Arrived by EMS. Historian: EMS. Unaccompanied. Primary physician (JARAD BOYD). 12:14 04/09/17. This started yesterday 1130. Patient was last known well (1130). Treatment LOAN DOCUMENTATION SPECIALIST: (Duoneb, 5mg Albuterol). See EMS report. ( "stable" BP). PAST MEDICAL HX: Immunizations: status is unknown. SOCIAL HX: Current every day smoker. FALL RISK ASSESSMENT: Fall risk assessment completed per protocol. Risk factors identified. Fall interventions initiated. Side rails up x2. Brakes on Bed in low position. Patient visible from nurses' station and identified as a fall risk. Call light in reach of patient. Instructed not to get up without assistance; AMS. --12:27 Mando Hidalgo R.N. PROBLEMS: Myofascial Strain. Back Injury. Back Pain. Lifestyle / Substance Problems. Abnormal Test. Emphysema. Dyspnea. Neck Pain. Muscle Spasm. Pneumonia. COPD - Chronic Obstructive Pulmonary Disease. Immunizations. --12:25 Mando Hidalgo R.N. Colon Cancer. Degenerative Joint Disease. COPD. Pulmonary Emphysema. Chronic pain syndrome. Insomnia. Hyperthyroidism. Hypothyroidism. Tenosynovitis. Thyrotoxicosis. Herpes Zoster. --12:42 Mando Hidalgo R.N. ADDITIONAL SURGERIES: Appendectomy. Back Surgery. Carpal Tunnel Surgery. --12:25 Mando Hidalgo R.N. Hysterectomy. --12:47 Mando Hidalgo R.N. Assessment 12:14 04/09/17. --12:27 Mando Hidalgo R.N. Interventions 12:13 04/09/17. 12:14 04/09/17. ID and allergy band on patient. To treatment room. --12:27 Mando Hidalgo R.N. PHYSICAL ASSESSMENT 12:14 04/09/17. To room via stretcher. Patient gowned. GENERAL / NEURO / PSYCH: Appears in distress. The patient is disoriented to place. Speech within normal limits. RESPIRATORY: Moderate respiratory distress. Wheezing present. Rhonchi present. CVS: Cardiac rhythm: normal sinus rhythm. SKIN: Skin is warm and dry. --12:26 Mando Hidalgo R.N. NURSING PROGRESS NOTES 12:03 04/09/2017 Site #1 started via IV in the right forearm with an 20g angiocath (by EMS). --12:28 Mando Hidalgo R.N. 12:14 04/09/17. The plan of care for this patient has been created. Oxygen administered. contracts specialist, pulse oximeter, end tidal CO2 monitor and NIBP monitor placed on patient. Finger stick glucose: 114 mg/dL. Patient gowned. Head of bed elevated. Reassurance given to the patient. Seizure precautions initiated. Two patient identifiers checked. Call light placed in reach. Side rails up x 2. Bed placed in lowest position. Brakes of bed on. Patient ready for evaluation- chart flagged and ED physician notified. --12:26 Mando Hidalgo R.N. 12:27 04/09/2017 Site #2 started via IV in the left with an 20g angiocath, with aseptic technique and good blood return; one attempt. Saline lock flushed with 10 mL saline. --12:32 Mando Hidalgo R.N. 12:28 04/09/2017 Duoneb (Ipratropium-Albuterol) Neb TX 1 unit dose given. Given by the respiratory therapist. Allergies verified and confirmed 5 rights. --12:28 Mando Hidalgo R.N. 12:28 04/09/2017 SOLU-MEDROL (MethylPREDNISolone Sodium Succ) IVP 125 mg given over 2 minute(s) via site #1. Allergies verified and confirmed 5 rights. IV patency established. IV site checked: no pain, redness, or swelling. IV flushed thoroughly pre- and post-medication administration. IVP given by RN. --12:29 Mando Hidalgo R.N. 12:35 04/09/17. --12:35 Mando Hidalgo R.N. 12:32 04/09/17. BP: 122/72. HR: 82. RR: 20. O2 saturation: 90%. End tidal CO2: 35 mmHg. Additional comments: Neb. --12:35 Mando Hidalgo R.N. 12:48 04/09/17. ( 10/30, 50% BiPaP started by RT). --12:48 Mando Hidalgo R.N. 12:48 04/09/17. ( ABG with CO2 of 140, PH 7.1). --12:48 Mando Hidalgo R.N. 12:50 04/09/17. --12:50 Mando Hidalgo R.N. 12:49 04/09/17. BP: 130/86. HR: 82. RR: 22. O2 saturation: 89%. Additional comments: BiPaP started. --12:50 Mando Hidalgo R.N. 12:50 04/09/17. ( TV by patient is 311). --12:51 Mando Hidalgo R.N. 12:51 04/09/17. EKG time: (1253 PM). EKG was ordered, performed and shown to the ED physician. --12:51 Mando Hidalgo R.N. 12:51 04/09/17. Cardiac rhythm: normal sinus rhythm. --12:51 Mando Hidalgo R.N. 13:17 04/09/17. BP: 119/83. HR: 74. RR: 20. O2 saturation: 99%. Additional comments: BIPAP 14/6 Rate 16 O2 60%. --13:18 Mando Hidalgo R.N. 13:18 04/09/17. --13:18 Mando Hidalgo R.N. 13:19 04/09/17. ( ABG to be completed soon for recheck after BiPaP therapy started). --13:19 Mando Hidalgo R.N. 13:19 04/09/17. Overall patient status is improved. GENERAL / NEURO / PSYCH: Denies restlessness. Patient is calm and cooperative. Affect appears normal. RESPIRATORY: No respiratory distress. CVS: Normal sinus rhythm noted. SKIN: Skin is warm and dry. --13:19 Mando Hidalgo R.N. 13:40 04/09/17. ( Unsuccessful ABG attempt x2, boyfriend at bedside). --13:40 Mando Hidalgo R.N. 13:40 04/09/17. Patient and family informed about reason for wait and about plan of care. --13:41 Mando Hidalgo R.N. 13:41 04/09/17. BP: 119/76. HR: 75. RR: 15. O2 saturation: 98%. Additional comments: BIPAP. --13:42 Mando Hidalgo R.N. 13:42 04/09/17. --13:42 Mando Hidalgo R.N. 13:42 04/09/17. Cardiac rhythm: normal sinus rhythm. --13:42 Mando Hidalgo R.N. 14:24 04/09/17. ( ABG completed, PC02 114, FIO2 45%, TV 350, 08/07). --14:24 Mando Hidalgo R.N. 14:25 04/09/17. Patient and family informed about reason for wait and about plan of care (To be admitted or transferred to higher level of care). --14:25 Mando Hidalgo R.N. 14:25 04/09/17. ( Oral care completed, ice given to patient). --14:25 Mando Hidalgo R.N. 14:59 04/09/17. BP: 119/67. HR: 82. RR: 18. O2 saturation: 98%. Additional comments: BiPaP. --15:00 Mando Hidalgo R.N. 15:00 04/09/17. Cardiac rhythm: normal sinus rhythm. --15:00 Mando Hidalgo R.N. 15:35 04/09/17. BP: 108/72. HR: 82. RR: 20. O2 saturation: 98%. Additional comments: BiPaP 45% 08/07. Rate 20, TV 440. --15:36 Mando Hidalgo R.N. 15:36 04/09/17. --15:36 Mando Hidalgo R.N. 16:32 04/09/2017 Started 500 mg of Azithromycin IVPB in bag #1 250 mL; at 250 mL/hr over 60 minute(s) via site #2 via IV pump. Allergies verified and confirmed 5 rights. IV patency established. IV site checked: no pain, redness, or swelling. IV flushed thoroughly pre- and post-medication administration. --16:33 Thompson Morrison R.N. 16:52 04/09/17. BP: 124/70. HR: 84. O2 saturation: 98%. Temp: 98.1 F (oral). Pain level now: 02/01. Additional comments: BiPaP 45% 08/07 Rate 20 TV 450. --16:53 Mando Hidalgo R.N. 16:53 04/09/2017 Started 1 gm of Vancomycin IVPB in bag #1 200 mL; at 175 mL/hr over 1 hour(s) via site #2; Allergies verified and confirmed 5 rights. IV patency established. IV site checked: no pain, redness, or swelling. IV flushed thoroughly pre- and post-medication administration. Completed per protocol. --16:53 Mando Hidalgo R.N. 16:53 04/09/17. Cardiac rhythm: normal sinus rhythm; (85). --16:53 Mando Hidalgo R.N. DISPOSITION / DISCHARGE 13:20 04/09/17. Patient's personal items include, Shirt, underwear, Tramadol medication in pill bottle, no cell phone; items were placed in belongings bag. --13:20 Mando Hidalgo R.N. 14:27 04/09/17. Patient's personal items include, All belongings given to patient boyfriend. --14:27 Mando Hidalgo R.N. 14:27 04/09/17. Patient's personal items include, Meds given to patients boyfriend. --14:27 Mando Hidalgo R.N. 17:36 04/09/17. The goals identified in the patient's plan of care were met. Report was given to a nurse via a phone call. Report included patient's care, treatment, medications, reviewed medication reconcilliation, and condition (including any recent changes or anticipated changes). All questions were answered. Report was acknowledged and care was transferred. (Dan[facility] NICO[facility] and [facility]). FALL RISK ASSESSMENT: Fall risk assessment completed. No fall risk identified. --17:36 Mando Hidalgo R.N. 17:35 04/09/17. BP: 105/69. HR: 87. RR: 18. O2 saturation: 97%. Temp: 98.2 F (oral). Additional comments: Bipap. --17:36 Mando Hidalgo R.N. 17:37 04/09/17. Cardiac rhythm: normal sinus rhythm. --17:37 Mando Hidalgo R.N. 17:45 04/09/2017 Site #[address] upon transfer; patent; flushes easily. --17:45 Mando Hidalgo R.N. 17:45 04/09/2017 Site #[address] upon transfer; patent. Converted to saline lock and flushed with 10 mL saline; flushes easily. --17:45 Mando Hidalgo R.N. Transferred to [facility]. Summary of care provided to transport team and transfer facility via paper. Transported via ambulance by nurse with IV and O2. Bed obtained and ready. --17:45 Mando Hidalgo R.N. <<STRICKEN ENTRY-- 18:06 04/09/17. Departure time: 18:06. --18:06 Mando Hidalgo R.N. --END STRIKE>> Correction --19:16 Mando Hidalgo R.N. Departure time: [id number]. --19:16 Mando Hidalgo R.N. Locked/Released at 04/09/2017 19:17 by Mando Hidalgo R.N.
--- NOTE | 2017-04-09 16:31 | ED CLINICAL REPORT ---
Clinical Report - Physicians/Mid Levels [facility] [address] [place] [address] 04/09/2017 12:13 Patient: CHAN JEFFRIES Time Seen: 12:23; initial patient contact. Arrived- By ambulance. Historian- patient and EMS personnel. HISTORY OF PRESENT ILLNESS Chief Complaint: DECREASED MENTAL STATUS. This started today, is still present and worsening and patient was last known well (Last night). The patient is described as having decreased responsiveness. The patient was found unresponsive (unknown duration) by family. No history of chronic dementia. No change in diabetic routine, alcohol recently or recent drug use. Dextro stick was not low prior to arrival. No recent fall. Similar symptoms previously: None. Recent medical care: Not recently seen/assessed. REVIEW OF SYSTEMS No fever, head injury, chest pain, nausea or vomiting. No calf pain or pedal edema. She has had sputum production, difficulty breathing and a cough. All systems otherwise negative, except as recorded above. PAST HISTORY ( Myofascial Strain. Back Injury. Back Pain. Lifestyle / Substance Problems. Abnormal Test. Emphysema. Dyspnea. Neck Pain. Muscle Spasm. Pneumonia. COPD - Chronic Obstructive Pulmonary Disease. Colon Cancer. Degenerative Joint Disease. COPD. Pulmonary Emphysema. Chronic pain syndrome. Insomnia. Hyperthyroidism. Hypothyroidism. Tenosynovitis. Thyrotoxicosis. Herpes Zoster. ADDITIONAL SURGERIES: Appendectomy. Back Surgery. Carpal Tunnel Surgery. Hysterectomy.). SOCIAL HISTORY Current every day heavy tobacco smoker. ADDITIONAL NOTES The nursing notes have been reviewed. PHYSICAL EXAM Vital Signs: 04/09/2017 12:23 BP: 104/68. HR: 87. RR: 20. O2 saturation: 90%. Temp: 97.9 F. Have been reviewed. Blood pressure normal. Heart rate normal. Respiratory rate normal. Temperature normal. Oxygen saturation low. Appearance: The patient is obtunded, is pale, appears older than stated age and shows no apparent trauma. Head: Head atraumatic. ENT: Airway intact. Neck: Normal inspection. CVS: Normal heart rate and rhythm. Heart sounds normal. Respiratory: Moderate respiratory distress with accessory muscle use, retractions and decreased mental status. Not able to speak. Moderately decreased air movement diffusely over both lungs. Abdomen: Soft and nontender. No organomegaly. Skin: No rash. Slight diaphoresis. Extremities: No lower extremity edema. Neuro: Moderately altered mental status: lethargic. LABS, X-RAYS, AND EKG EKG: EKG time: (1253). Normal sinus rhythm. Rate: 81. Normal P waves. Normal JOLYNN. Normal QRS complex. Right axis deviation. Normal ST and T waves, QT and QTc. EKG unchanged when compared with prior EKG. (01/17/16). The study has been interpreted contemporaneously by me. The study has been independently viewed by me. The EKG appears to be a good tracing. Interpretation time: 1253. Chest X-ray: (1. Bibasilar infiltrates and a right pleural effusion.). Views: AP. Technique: good. The X-rays were independently viewed by me, interpreted by the radiologist and discussed with the radiologist. A comparison with prior films reveals that the findings are new. Laboratory Tests: UA-Culture if indicated: (CÉSAR: 04/09/2017 12:40) ( MsgRcvd 04/09/2017 13:02) Final results Test Result Flag Units (Reference) URINE COLOR YELLOW URINE APPEARANCE CLEAR URINE GLUCOSE NEGATIVE (NEGATIVE) URINE BILIRUBIN NEGATIVE (NEGATIVE) URINE KETONE NEGATIVE (NEGATIVE) URINE SPECIFIC GRAVITY 1.025 (1.010-1.030) URINE PH 6.0 (5.0-8.0) URINE PROTEIN NEGATIVE (NEGATIVE) URINE UROBILINOGEN 0.2 EU/dL (0.2-1.0) URINE NITRITE NEGATIVE (NEGATIVE) URINE BLOOD NEGATIVE (NEGATIVE) URINE LEUK ESTERASE NEGATIVE (NEGATIVE) URINE RBC NONE SEEN rbc/hpf (0-1) URINE WBC 0-1 wbc/hpf (0-1) URINE EPITHELIAL CELLS 1-3 EPI/hpf (0-5) URINE BACTERIA TRACE (<1+) (NONE SEEN) URINE COMMENT CULT NOT INDICATED 1+ MUCOUS1-3 HYALINE CAST/LPFURINE CULTURES ARE SET-UP BASED ON THE FOLLOWING CRITERIA:POSITIVE NITRITEPOSITIVE LEUKOCYTE ESTERASEGREATER THAN 10 WHITE BLOOD CELLSMODERATE (2+) OR GREATER BACTERIA CBC w Diff: (CÉSAR: 04/09/2017 12:20) ( [facility] 04/09/2017 12:32) Final results Test Result Flag Units (Reference) WHITE BLOOD COUNT 9.1 K/uL (4.5-11.5) RED BLOOD COUNT 4.35 M/uL (4.00-5.20) HEMOGLOBIN 12.8 gm/dL (12.0-16.0) HEMATOCRIT 41.2 % (36.0-46.0) MEAN CELL VOLUME 95 fL (80-100) MEAN CORPUSCULAR HGB 29 pg (26-34) MEAN CORPUSCULAR HGB CONC 31 g/dL (31-37) RED CELL DISTRIBUTION WIDTH 17.1 H % (11.6-14.8) PLATELET COUNT 209 K/uL (150-400) NEUTROPHIL % 71.6 % (50-75) LYMPH % 15.8 L % (25-40) MONO % 9.0 % (3-14) EOSINOPHIL % 2.2 % (0-4) BASOPHIL % 1.4 % (0-2) [id number]: (CÉSAR: 04/09/2017 12:20) ( [facility] 04/09/2017 12:48) Final results Test Result Flag Units (Reference) D-DIMER QUANTITATIVE < 0.27 L ug/mLFEU (0.27-0.52) The primary value of this quantitative assay relates toits negative predictive value (i.e. exclusion) of pulmonaryembolism/deep vein thrombosis/DIC.Elevated levels of d-dimer may also occur with:, age, cancer, inflammation, liver disease,post-op, infection, hematoma, coronary disease, peripheralarteriopathy, bleeding disorders and thrombolytic treatment.Results should be correlated with other clinical andradiological data.Testing Methodology: Latex Immunoassay [id number]: (CÉSAR: 04/09/2017 12:20) ( [facility] 04/09/2017 17:03) Final results Test Result Flag Units (Reference) PROCALCITONIN <0.5 ng/mL (0-0.5) PCT Concentration: Interpretation : Risk/option for action PCT <=0.5 ng/mL : Systemic : Low risk forinfection(sepsis): progression to severeis not likely. : systemic infection.Local bacterial : CAUTION-PCT levelsinfection is : below 0.5 ng/mL do notpossible. : exclude an infection,because localizedinfections (withoutsystemic signs) may beassociated with suchlow levels. If PCT ismeasured very earlyafter a bacterialchallenge (usually <6hours), these valuesmay still be low. Inthis case PCT shouldbe re-assessed 6-24hours later. PCT >0.5 and : Systemic infection: Moderate risk for<= 2 ng/mL : (sepsis) is : progression to severepossible, but : systemic infection.other conditions : The patient should beare known to : closely monitoredelevate PCT. : both clinically andby re-assessing PCTwithin 6-24 hours. PCT > 2 ng/mL : Systemic infection: High risk for(sepsis) is likely: progression to severeunless other : systemic infection.causes are known. : PCT >= 10 ng/mL : Important systemic: High likelihood ofinflammatory : severe sepsis orresponse, almost : septic shock.exclusively due to:severe bacterial :sepsis or septic :shock. : BNP: (CÉSAR: 04/09/2017 12:20) ( [facility] 04/09/2017 12:49) Final results Test Result Flag Units (Reference) B-TYPE NATRIURETIC PEPTIDE 205 H pg/ml (5-100) CMP: (CÉSAR: 04/09/2017 12:20) ( HigRcvd 04/09/2017 13:00) Final results Test Result Flag Units (Reference) GLUCOSE 113 H mg/dL (70-110) BUN 17 mg/dL (7-18) CREATININE 0.7 mg/dL (0.6-1.3) Estimated GFR >60 mL/min Estimated GFR- >60 mL/min Note: Persistent reduction over 3 months in eGFR<60 mL/min/1.73 m2 defines CKD. Patients with eGFR values>=60 mL/min/1.73 m2 may also have CKD if evidence ofpersistent proteinuria. Additional information may be foundat www.kidney.org. SODIUM 143 mmol/L (136-145) POTASSIUM 5.0 mmol/L (3.5-5.1) CHLORIDE 101 mmol/L (98-107) CARBON DIOXIDE 41 *H mmol/L (21-32) CALCIUM 8.2 L mg/dL (8.5-10.1) TOTAL PROTEIN 6.9 g/dL (6.4-8.2) ALBUMIN 3.3 g/dL (3.3-5.0) BILIRUBIN, TOTAL 0.2 mg/dL (0.0-1.0) ALKALINE PHOSPHATASE 56 U/L (46-116) AST (SGOT) 31 U/L (15-37) ALT (SGPT) 37 U/L (12-78) ABG: (CÉSAR: 04/09/2017 13:45) ( [facility] 04/09/2017 15:32) IP Test Result Flag Units (Reference) ABG MODE OF DELIVERY BIPAP MODIFIED CONSTANTINE TEST POSITIVE? YES ABG PATIENT RESP RATE 20 /MIN ABG RESP RATE SETTINGS 16 /MIN ARTERIAL BLOOD GAS SITE RB ARTERIAL BLOOD GAS pH 7.19 *L (7.35-7.45) ABG PCO2 114.0 *H mmHg (35-45) ABG PO2 83.5 mmHg (80.0-100.0) ABG BASE EXCESS 13.0 *H mmol/L (-6.0--6.0) ABG HCO3 43.4 *H mmol/L (20.0-26.0) ABG TCO2 46.9 *H mmol/L (24.0-30.0) ABG EvPpC5n 215.6 H mmHg (7.0-14.0) *NOTE: Normal rangeis based on aFIO2 of 21% ABG SAT O2 96.0 % (95.1-100.0) ABG TOTAL HEMOGLOBIN 12.4 g/dL (12.0-16.0) ABG O2 HEMOGLOBIN 91.9 L % (95.0-100.0) ABG CARBOXYHEMOGLOBIN 4.0 H % (0.5-1.5) ABG METHEMOGLOBIN 0.3 L % (0.4-1.5) ABG RHEMOGLOBIN 3.8 % ABG: (CÉSAR: 04/09/2017 12:28) ( MsgRcvd 04/09/2017 14:17) IP Test Result Flag Units (Reference) FIO2 60 % (20-101) ABG MODE OF DELIVERY BIPAP MODIFIED CONSTANTINE TEST POSITIVE? YES ABG VENT MODE BIPAP ABG TIDAL VOLUME 114 cc ABG PATIENT RESP RATE 25 /MIN ABG RESP RATE SETTINGS 16 /MIN ARTERIAL BLOOD GAS SITE RR ARTERIAL BLOOD GAS pH 7.10 *L (7.35-7.45) ABG PCO2 140.0 *H mmHg (35-45) ABG PO2 136.0 H mmHg (80.0-100.0) ABG BASE EXCESS 11.8 *H mmol/L (-6.0--6.0) ABG HCO3 43.5 *H mmol/L (20.0-26.0) ABG TCO2 47.9 *H mmol/L (24.0-30.0) ABG SAT O2 98.7 % (95.1-100.0) ABG TOTAL HEMOGLOBIN 12.1 g/dL (12.0-16.0) ABG O2 HEMOGLOBIN 94.2 L % (95.0-100.0) ABG CARBOXYHEMOGLOBIN 4.3 H % (0.5-1.5) ABG METHEMOGLOBIN 0.3 L % (0.4-1.5) ABG RHEMOGLOBIN 1.2 % COMMENTS ON RA . PROGRESS AND PROCEDURES Critical care performed (75 minutes). Time includes: direct patient care, patient reassessment, coordination of patient care, interpretation of data (laboratory data, pulse oximetry, arterial blood gases, chest xrays and prior electrocardiograms), review of patient's medical records, medical consultation, family consultation regarding treatment decisions and documentation of patient care. The patient required critical care due to the acute impairment of vital organ systems (respiratory) and a high probability of life threatening deterioration. Numerous emergent interventions were required to prevent life threatening deterioration. Discussed case with hospitalist, (15:55 Dr. Rodriguez, will not accept the patient because he is capped.). Disposition: Benefits, risks and alternatives to transfer explained to patient and family. Transferred to [facility]. Condition: stable. CLINICAL IMPRESSION Acute exacerbation of COPD. Bacterial and lobar pneumonia with hypoxemia and respiratory failure. Empiric antibiotics given in the ED. Hypercapnia. INSTRUCTIONS Follow-up: Screening today revealed the patient's blood pressure to be in the normal range. (Electronically signed by Ovidio Mcdowell Dr. 04/09/2017 19:45)
--- NOTE | 2017-04-09 16:31 | ED CLINICAL REPORT ---
Clinical Report - Physicians/Mid Levels [facility] [address] [place] [address] 04/09/2017 12:13 Patient: CHAN JEFFRIES Time Seen: 12:23; initial patient contact. Arrived- By ambulance. Historian- patient and EMS personnel. HISTORY OF PRESENT ILLNESS Chief Complaint: DECREASED MENTAL STATUS. This started today, is still present and worsening and patient was last known well (Last night). The patient is described as having decreased responsiveness. The patient was found unresponsive (unknown duration) by family. No history of chronic dementia. No change in diabetic routine, alcohol recently or recent drug use. Dextro stick was not low prior to arrival. No recent fall. Similar symptoms previously: None. Recent medical care: Not recently seen/assessed. REVIEW OF SYSTEMS No fever, head injury, chest pain, nausea or vomiting. No calf pain or pedal edema. She has had sputum production, difficulty breathing and a cough. All systems otherwise negative, except as recorded above. PAST HISTORY ( Myofascial Strain. Back Injury. Back Pain. Lifestyle / Substance Problems. Abnormal Test. Emphysema. Dyspnea. Neck Pain. Muscle Spasm. Pneumonia. COPD - Chronic Obstructive Pulmonary Disease. Colon Cancer. Degenerative Joint Disease. COPD. Pulmonary Emphysema. Chronic pain syndrome. Insomnia. Hyperthyroidism. Hypothyroidism. Tenosynovitis. Thyrotoxicosis. Herpes Zoster. ADDITIONAL SURGERIES: Appendectomy. Back Surgery. Carpal Tunnel Surgery. Hysterectomy.). SOCIAL HISTORY Current every day heavy tobacco smoker. ADDITIONAL NOTES The nursing notes have been reviewed. PHYSICAL EXAM Vital Signs: 04/09/2017 12:23 BP: 104/68. HR: 87. RR: 20. O2 saturation: 90%. Temp: 97.9 F. Have been reviewed. Blood pressure normal. Heart rate normal. Respiratory rate normal. Temperature normal. Oxygen saturation low. Appearance: The patient is obtunded, is pale, appears older than stated age and shows no apparent trauma. Head: Head atraumatic. ENT: Airway intact. Neck: Normal inspection. CVS: Normal heart rate and rhythm. Heart sounds normal. Respiratory: Moderate respiratory distress with accessory muscle use, retractions and decreased mental status. Not able to speak. Moderately decreased air movement diffusely over both lungs. Abdomen: Soft and nontender. No organomegaly. Skin: No rash. Slight diaphoresis. Extremities: No lower extremity edema. Neuro: Moderately altered mental status: lethargic. LABS, X-RAYS, AND EKG EKG: EKG time: (1253). Normal sinus rhythm. Rate: 81. Normal P waves. Normal JOLYNN. Normal QRS complex. Right axis deviation. Normal ST and T waves, QT and QTc. EKG unchanged when compared with prior EKG. (01/17/16). The study has been interpreted contemporaneously by me. The study has been independently viewed by me. The EKG appears to be a good tracing. Interpretation time: 1253. Chest X-ray: (1. Bibasilar infiltrates and a right pleural effusion.). Views: AP. Technique: good. The X-rays were independently viewed by me, interpreted by the radiologist and discussed with the radiologist. A comparison with prior films reveals that the findings are new. Laboratory Tests: UA-Culture if indicated: (CÉSAR: 04/09/2017 12:40) ( MsgRcvd 04/09/2017 13:02) Final results Test Result Flag Units (Reference) URINE COLOR YELLOW URINE APPEARANCE CLEAR URINE GLUCOSE NEGATIVE (NEGATIVE) URINE BILIRUBIN NEGATIVE (NEGATIVE) URINE KETONE NEGATIVE (NEGATIVE) URINE SPECIFIC GRAVITY 1.025 (1.010-1.030) URINE PH 6.0 (5.0-8.0) URINE PROTEIN NEGATIVE (NEGATIVE) URINE UROBILINOGEN 0.2 EU/dL (0.2-1.0) URINE NITRITE NEGATIVE (NEGATIVE) URINE BLOOD NEGATIVE (NEGATIVE) URINE LEUK ESTERASE NEGATIVE (NEGATIVE) URINE RBC NONE SEEN rbc/hpf (0-1) URINE WBC 0-1 wbc/hpf (0-1) URINE EPITHELIAL CELLS 1-3 EPI/hpf (0-5) URINE BACTERIA TRACE (<1+) (NONE SEEN) URINE COMMENT CULT NOT INDICATED 1+ MUCOUS1-3 HYALINE CAST/LPFURINE CULTURES ARE SET-UP BASED ON THE FOLLOWING CRITERIA:POSITIVE NITRITEPOSITIVE LEUKOCYTE ESTERASEGREATER THAN 10 WHITE BLOOD CELLSMODERATE (2+) OR GREATER BACTERIA CBC w Diff: (CÉSAR: 04/09/2017 12:20) ( [facility] 12:32) Final results Test Result Flag Units (Reference) WHITE BLOOD COUNT 9.1 K/uL (4.5-11.5) RED BLOOD COUNT 4.35 M/uL (4.00-5.20) HEMOGLOBIN 12.8 gm/dL (12.0-16.0) HEMATOCRIT 41.2 % (36.0-46.0) MEAN CELL VOLUME 95 fL (80-100) MEAN CORPUSCULAR HGB 29 pg (26-34) MEAN CORPUSCULAR HGB CONC 31 g/dL (31-37) RED CELL DISTRIBUTION WIDTH 17.1 H % (11.6-14.8) PLATELET COUNT 209 K/uL (150-400) NEUTROPHIL % 71.6 % (50-75) LYMPH % 15.8 L % (25-40) MONO % 9.0 % (3-14) EOSINOPHIL % 2.2 % (0-4) BASOPHIL % 1.4 % (0-2) [id number]: (CÉSAR: 04/09/2017 12:20) ( [facility] [place] 04/09/2017 12:48) Final results Test Result Flag Units (Reference) D-DIMER QUANTITATIVE < 0.27 L ug/mLFEU (0.27-0.52) The primary value of this quantitative assay relates toits negative predictive value (i.e. exclusion) of pulmonaryembolism/deep vein thrombosis/DIC.Elevated levels of d-dimer may also occur with:, age, cancer, inflammation, liver disease,post-op, infection, hematoma, coronary disease, peripheralarteriopathy, bleeding disorders and thrombolytic treatment.Results should be correlated with other clinical andradiological data.Testing Methodology: Latex Immunoassay [id number]: (CÉSAR: 04/09/2017 12:20) ( [facility] 04/09/2017 17:03) Final results Test Result Flag Units (Reference) PROCALCITONIN <0.5 ng/mL (0-0.5) PCT Concentration: Interpretation : Risk/option for action PCT <=0.5 ng/mL : Systemic : Low risk forinfection(sepsis): progression to severeis not likely. : systemic infection.Local bacterial : CAUTION-PCT levelsinfection is : below 0.5 ng/mL do notpossible. : exclude an infection,because localizedinfections (withoutsystemic signs) may beassociated with suchlow levels. If PCT ismeasured very earlyafter a bacterialchallenge (usually <6hours), these valuesmay still be low. Inthis case PCT shouldbe re-assessed 6-24hours later. PCT >0.5 and : Systemic infection: Moderate risk for<= 2 ng/mL : (sepsis) is : progression to severepossible, but : systemic infection.other conditions : The patient should beare known to : closely monitoredelevate PCT. : both clinically andby re-assessing PCTwithin 6-24 hours. PCT > 2 ng/mL : Systemic infection: High risk for(sepsis) is likely: progression to severeunless other : systemic infection.causes are known. : PCT >= 10 ng/mL : Important systemic: High likelihood ofinflammatory : severe sepsis orresponse, almost : septic shock.exclusively due to:severe bacterial :sepsis or septic :shock. : BNP: (CÉSAR: 04/09/2017 12:20) ( [facility] [place] 04/09/2017 12:49) Final results Test Result Flag Units (Reference) B-TYPE NATRIURETIC PEPTIDE 205 H pg/ml (5-100) CMP: (CÉSAR: 04/09/2017 12:20) ( FlgRcvd 04/09/2017 13:00) Final results Test Result Flag Units (Reference) GLUCOSE 113 H mg/dL (70-110) BUN 17 mg/dL (7-18) CREATININE 0.7 mg/dL (0.6-1.3) Estimated GFR >60 mL/min Estimated GFR- >60 mL/min Note: Persistent reduction over 3 months in eGFR<60 mL/min/1.73 m2 defines CKD. Patients with eGFR values>=60 mL/min/1.73 m2 may also have CKD if evidence ofpersistent proteinuria. Additional information may be foundat www.kidney.org. SODIUM 143 mmol/L (136-145) POTASSIUM 5.0 mmol/L (3.5-5.1) CHLORIDE 101 mmol/L (98-107) CARBON DIOXIDE 41 *H mmol/L (21-32) CALCIUM 8.2 L mg/dL (8.5-10.1) TOTAL PROTEIN 6.9 g/dL (6.4-8.2) ALBUMIN 3.3 g/dL (3.3-5.0) BILIRUBIN, TOTAL 0.2 mg/dL (0.0-1.0) ALKALINE PHOSPHATASE 56 U/L (46-116) AST (SGOT) 31 U/L (15-37) ALT (SGPT) 37 U/L (12-78) ABG: (CÉSAR: 04/09/2017 13:45) ( [facility] 04/09/2017 15:32) IP Test Result Flag Units (Reference) ABG MODE OF DELIVERY BIPAP MODIFIED CONSTANTINE TEST POSITIVE? YES ABG PATIENT RESP RATE 20 /MIN ABG RESP RATE SETTINGS 16 /MIN ARTERIAL BLOOD GAS SITE RB ARTERIAL BLOOD GAS pH 7.19 *L (7.35-7.45) ABG PCO2 114.0 *H mmHg (35-45) ABG PO2 83.5 mmHg (80.0-100.0) ABG BASE EXCESS 13.0 *H mmol/L (-6.0--6.0) ABG HCO3 43.4 *H mmol/L (20.0-26.0) ABG TCO2 46.9 *H mmol/L (24.0-30.0) ABG IjBkY8g 215.6 H mmHg (7.0-14.0) *NOTE: Normal rangeis based on aFIO2 of 21% ABG SAT O2 96.0 % (95.1-100.0) ABG TOTAL HEMOGLOBIN 12.4 g/dL (12.0-16.0) ABG O2 HEMOGLOBIN 91.9 L % (95.0-100.0) ABG CARBOXYHEMOGLOBIN 4.0 H % (0.5-1.5) ABG METHEMOGLOBIN 0.3 L % (0.4-1.5) ABG RHEMOGLOBIN 3.8 % ABG: (CÉSAR: 04/09/2017 12:28) ( MsgRcvd 04/09/2017 14:17) IP Test Result Flag Units (Reference) FIO2 60 % (20-101) ABG MODE OF DELIVERY BIPAP MODIFIED CONSTANTINE TEST POSITIVE? YES ABG VENT MODE BIPAP ABG TIDAL VOLUME 114 cc ABG PATIENT RESP RATE 25 /MIN ABG RESP RATE SETTINGS 16 /MIN ARTERIAL BLOOD GAS SITE RR ARTERIAL BLOOD GAS pH 7.10 *L (7.35-7.45) ABG PCO2 140.0 *H mmHg (35-45) ABG PO2 136.0 H mmHg (80.0-100.0) ABG BASE EXCESS 11.8 *H mmol/L (-6.0--6.0) ABG HCO3 43.5 *H mmol/L (20.0-26.0) ABG TCO2 47.9 *H mmol/L (24.0-30.0) ABG SAT O2 98.7 % (95.1-100.0) ABG TOTAL HEMOGLOBIN 12.1 g/dL (12.0-16.0) ABG O2 HEMOGLOBIN 94.2 L % (95.0-100.0) ABG CARBOXYHEMOGLOBIN 4.3 H % (0.5-1.5) ABG METHEMOGLOBIN 0.3 L % (0.4-1.5) ABG RHEMOGLOBIN 1.2 % COMMENTS ON RA . PROGRESS AND PROCEDURES Critical care performed (75 minutes). Time includes: direct patient care, patient reassessment, coordination of patient care, interpretation of data (laboratory data, pulse oximetry, arterial blood gases, chest xrays and prior electrocardiograms), review of patient's medical records, medical consultation, family consultation regarding treatment decisions and documentation of patient care. The patient required critical care due to the acute impairment of vital organ systems (respiratory) and a high probability of life threatening deterioration. Numerous emergent interventions were required to prevent life threatening deterioration. Discussed case with hospitalist, (15:55 Dr. Rodriguez, will not accept the patient because he is capped.). Disposition: Benefits, risks and alternatives to transfer explained to patient and family. Transferred to [facility]. Condition: stable. CLINICAL IMPRESSION Acute exacerbation of COPD. Bacterial and lobar pneumonia with hypoxemia and respiratory failure. Empiric antibiotics given in the ED. Hypercapnia. INSTRUCTIONS Follow-up: Screening today revealed the patient's blood pressure to be in the normal range. (Electronically signed by Ovidio Mcdowell Dr. 04/09/2017 19:45)
--- NOTE | 2017-04-09 16:31 | ED ORDER SUMMARY ---
..... Patient: CHAN JEFFRIES OrderSheet [facility] VisitID: [id number] [place] [address] 56y, F Registration Date/Time: 04/09/2017 ORDER SHEET Weight: 44.9 kg (measured) Allergies: Dilaudid, IV Contrast, Neurontin, Penicillins GENERAL ORDERS: Chest 1V Urgent (12:04/09/2017 Binta Moreau) (Ack 12:30 Evan) (12:49 JBoardley R.N.) CBC w Diff Urgent (12:04/09/2017 Binta Moreau) (12:27 JBoardley R.N.) CMP Urgent (12:04/09/2017 Binta Moreau) (12:27 JBoardley R.N.) UA-Culture if indicated Urgent (12:04/09/2017 Binta Moreau) (Ack 12:30 Evan) (12:49 JBoardley R.N.) BNP Urgent (12:04/09/2017 Binta Moreau) (12:28 JBoardley R.N.) D-Dimer Urgent (12:04/09/2017 Binta Moreau) (12:28 JBoardley R.N.) ABG (G) Urgent (12:04/09/2017 Binta Moreau) (Ack 12:30 Evan) (12:49 JBoardley R.N.) Receptionist Airline Lounge (Continuous) (12:29 04/09/2017 JBoardley R.N. per protocol) (12:29 JBoardley R.N.) Oxygen (2 L/min) (NC) (12:04/09/2017 JBoardley R.N. per protocol) (12:29 JBoardley R.N.) Pulse oximeter (12:04/09/2017 JBoardley R.N. per protocol) (12:29 JBoardley R.N.) POC Glucose (12:04/09/2017 JBoardley R.N. per protocol) (12:29 JBoardley R.N.) EKG - ER Stat (12:29 04/09/2017 JBoardley R.N. per protocol) (12:49 JBoardley R.N.) Vitals (12:29 04/09/2017 JBoardley R.N. per protocol) (12:29 JBoardley R.N.) NPO (12:29 04/09/2017 JBoardley R.N. per protocol) (12:29 JBoardley R.N.) ABG (G) Urgent (13:45 04/09/2017 Binta Moreau) (Ack 13:50 JBoardley R.N.) (14:26 JBoardley R.N.) Blood Culture (No) (N/A) Urgent (15:58 04/09/2017 Binta Moreau) (Ack 16:01 Evan) (16:32 JBoardley R.N.) Lactic Acid for Sepsis Protocol Urgent (16:00 04/09/2017 Binta Moreau) (Ack 16:01 Evan) (16:32 JBoardley R.N.) PCT (Procalcitonin) Urgent (16:00 04/09/2017 Binta Moreau) (Ack 16:01 Evan) (16:32 JBoardley R.N.) MEDICATION ORDERS: DuoNeb Neb Tx 1 unit dose (NOW) (12:24 04/09/2017 Binta Moreau) (12:28 JBriodley R.N.) IV FLUIDS: Solu-MEDROL IV 125 mg (NOW) (12:28 04/09/2017 Binta Moreau) (12:29 JBoardley R.N.) IV Saline Lock (12:29 04/09/2017 JBoardley R.N. per protocol) (12:30 JBoardley R.N.) Azithromycin IV 500 mg/250 mL (NOW) (15:57 04/09/2017 Binta Moreau) (Ack 16:06 JBoardlejong R.N.) (16:33 Gladys R.N.) Vancomycin IV 1 gm/200mL (NOW) (16:00 04/09/2017 Binta Moreau) (Ack 16:06 Mikal R.NJeremy) (16:53 Mikal R.Silvina) ORDER SHEET NOTES: [Electronically signed by Mando Hidalgo R.N. (:17 04/09/2017)] [Electronically signed by Ovidio Mcdowell Dr. (19:45 04/09/2017)] [Electronically locked/signed by Mando Hidalgo R.N. (:17 04/09/2017)]
--- NOTE | 2017-04-09 16:31 | ED ORDER SUMMARY ---
..... Patient: CHAN JEFFRIES OrderSheet [facility] VisitID: [id number] [place] [address] 56y, F Registration Date/Time: 04/09/2017 ORDER SHEET Weight: 44.9 kg (measured) Allergies: Dilaudid, IV Contrast, Neurontin, Penicillins GENERAL ORDERS: Chest 1V Urgent (12:04/09/2017 Binta Moreau) (Ack 12:30 Evan) (12:49 JBoardley R.N.) CBC w Diff Urgent (12:04/09/2017 Binta Moreau) (12:27 JBoardley R.N.) CMP Urgent (12:04/09/2017 Binta Moreau) (12:27 JBoardley R.N.) UA-Culture if indicated Urgent (12:04/09/2017 Binta Moreau) (Ack 12:30 Evan) (12:49 JBoardley R.N.) BNP Urgent (12:04/09/2017 Binta Moreau) (12:28 JBoardley R.N.) D-Dimer Urgent (12:04/09/2017 Binta Moreau) (12:28 JBoardley R.N.) ABG (G) Urgent (12:04/09/2017 Binta Moreau) (Ack 12:30 Evan) (12:49 JBoardley R.N.) Biomass Plant Manager (Continuous) (12:29 04/09/2017 JBoardley R.N. per protocol) (12:29 JBoardley R.N.) Oxygen (2 L/min) (NC) (12:04/09/2017 JBoardley R.N. per protocol) (12:29 JBoardley R.N.) Pulse oximeter (12:04/09/2017 JBoardley R.N. per protocol) (12:29 JBoardley R.N.) POC Glucose (12:04/09/2017 JBoardley R.N. per protocol) (12:29 JBoardley R.N.) EKG - ER Stat (12:29 04/09/2017 JBoardley R.N. per protocol) (12:49 JBoardley R.N.) Vitals (12:29 04/09/2017 JBoardley R.N. per protocol) (12:29 JBoardley R.N.) NPO (12:29 04/09/2017 JBoardley R.N. per protocol) (12:29 JBoardley R.N.) ABG (G) Urgent (13:45 04/09/2017 Binta Moreau) (Ack 13:50 JBoardley R.N.) (14:26 JBoardley R.N.) Blood Culture (No) (N/A) Urgent (15:58 04/09/2017 Binta Moreau) (Ack 16:01 Evan) (16:32 JBoardley R.N.) Lactic Acid for Sepsis Protocol Urgent (16:00 04/09/2017 Binta Moreau) (Ack 16:01 Evan) (16:32 JBoardley R.N.) PCT (Procalcitonin) Urgent (16:00 04/09/2017 Binta Moreau) (Ack 16:01 Evan) (16:32 JBoardley R.N.) MEDICATION ORDERS: DuoNeb Neb Tx 1 unit dose (NOW) (12:24 04/09/2017 Binta Moreau) (12:28 JBriodley R.N.) IV FLUIDS: Solu-MEDROL IV 125 mg (NOW) (12:28 04/09/2017 Binta Moreau) (12:29 JBoardley R.N.) IV Saline Lock (12:29 04/09/2017 JBoardley R.N. per protocol) (12:30 JBoardley R.N.) Azithromycin IV 500 mg/250 mL (NOW) (15:57 04/09/2017 Binta Moreau) (Ack 16:06 JBoardlejong R.N.) (16:33 Gladys R.N.) Vancomycin IV 1 gm/200mL (NOW) (16:00 04/09/2017 Binta Moreau) (Ack 16:06 Mikal R.NJeremy) (16:53 Mikal R.Silvina) ORDER SHEET NOTES: [Electronically signed by Mando Hidalgo R.N. (:17 04/09/2017)] [Electronically signed by Ovidio Mcdowell Dr. (19:45 04/09/2017)] [Electronically locked/signed by Mando Hidalgo R.N. (:17 04/09/2017)]
--- NOTE | 2017-04-09 19:45 | ED MAR SUMMARY ---
..... Medication Administration Record [facility] [address] [place] [address] Patient: CHAN JEFFRIES Visit ID: [id number] 56y, F Weight: 44.9 kg Height/Length: 61 in BMI: 18.7 ALLERGIES: Dilaudid, IV Contrast, Neurontin, Penicillins Given 12:28 04/09/2017 Mando Hidalgo R.N. Medication Administered: DUONEB [NEB TX] (IPRATROPIUM-ALBUTEROL), Dose: 1 unit dose Neb TX. Medication Ordered: DuoNeb Neb Tx 1 unit dose (NOW). Given 12:04/09/2017 Mando Hidalgo R.N. Medication Administered: SOLU-MEDROL [IVP] (METHYLPREDNISOLONE SODIUM SUCC), Dose: 125 mg IVP over 2 minute(s), Site: #1 right forearm. Medication Ordered: Solu-MEDROL IV 125 mg (NOW). Start 16:32 04/09/2017 Thompson Morrison R.N. Medication Administered: AZITHROMYCIN [IVPB], Dose: 500 mg IVPB over 60 minute(s), Rate: 250 mL/hr, Dispensed: 250 mL bag, Site: #2 left. Medication Ordered: Azithromycin IV 500 mg/250 mL (NOW). Start 16:53 04/09/2017 Mando Hidalgo R.N. Medication Administered: VANCOMYCIN [IVPB], Dose: 1 gm IVPB over 1 hour(s), Rate: 175 mL/hr, Dispensed: 200 mL bag, Site: #2 left. Medication Ordered: Vancomycin IV 1 gm/200mL (NOW).
--- NOTE | 2017-04-09 19:45 | ED MED RECONCILIATION SUMMARY ---
Patient: CHAN JEFFRIES Medication Reconciliation Report [facility] VisitID: [id number] [address] [place] [address] 56y, F Registration Date/Time: 04/09/2017 Weight: 44.9 kg Height/Length: 61 in. BMI: 18.7 ALLERGIES: Dilaudid, IV Contrast, Neurontin, Penicillins The patient's Home Medications are listed below: THE FOLLOWING MEDICATIONS NEED TO BE RECONCILED: Albuterol Inhalation, 2 puffs every 6 hrs Alendronate Sodium Oral 70mg, weekly Combivent Respimat Inhalation (20-100 mcg/act) 1 puff, 4 times a day Cyclobenzaprine HCl Oral 10 mg, 3x a day DuoNeb DuoNeb Inhalation Gabapentin Oral 300 mg, 3x a day Motrin Oral Oxygen 1.5 L /nc at night only PredniSONE Oral 40 mg, daily ProAir HFA Inhalation Qvar Inhalation (80 mcg/act) TraMADol HCl Oral 50mg, daily, Every 4 hours/6 tabs a day, for neck pain The source(s) of the original Home Medication information: EMS The following Medications were given to the patient in the Emergency Department: Duoneb [Neb Tx] Neb TX 1 unit dose, administered: 04/09/2017 12:28:00 PM SOLU-MEDROL [IVP] IVP 125 mg, administered: 04/09/2017 12:28:00 PM Azithromycin [IVPB] IVPB bolus 0, then 500 mg 250 mL/hr, administered: 04/09/2017 4:32:00 PM Vancomycin [IVPB] IVPB bolus 0, then 1 gm 175 mL/hr, administered: 04/09/2017 4:53:00 PM The following Medications were prescribed to the patient: None.
--- NOTE | 2017-04-09 19:45 | ED MED RECONCILIATION SUMMARY ---
Patient: CHAN JEFFRIES Medication Reconciliation Report [facility] VisitID: [id number] [address] [place] [address] 56y, F Registration Date/Time: 04/09/2017 Weight: 44.9 kg Height/Length: 61 in. BMI: 18.7 ALLERGIES: Dilaudid, IV Contrast, Neurontin, Penicillins The patient's Home Medications are listed below: THE FOLLOWING MEDICATIONS NEED TO BE RECONCILED: Albuterol Inhalation, 2 puffs every 6 hrs Alendronate Sodium Oral 70mg, weekly Combivent Respimat Inhalation (20-100 mcg/act) 1 puff, 4 times a day Cyclobenzaprine HCl Oral 10 mg, 3x a day DuoNeb DuoNeb Inhalation Gabapentin Oral 300 mg, 3x a day Motrin Oral Oxygen 1.5 L /nc at night only PredniSONE Oral 40 mg, daily ProAir HFA Inhalation Qvar Inhalation (80 mcg/act) TraMADol HCl Oral 50mg, daily, Every 4 hours/6 tabs a day, for neck pain The source(s) of the original Home Medication information: EMS The following Medications were given to the patient in the Emergency Department: Duoneb [Neb Tx] Neb TX 1 unit dose, administered: 04/09/2017 12:28:00 PM SOLU-MEDROL [IVP] IVP 125 mg, administered: 04/09/2017 12:28:00 PM Azithromycin [IVPB] IVPB bolus 0, then 500 mg 250 mL/hr, administered: 04/09/2017 4:32:00 PM Vancomycin [IVPB] IVPB bolus 0, then 1 gm 175 mL/hr, administered: 04/09/2017 4:53:00 PM The following Medications were prescribed to the patient: None.
--- NOTE | 2017-04-09 19:45 | ED MAR SUMMARY ---
..... Medication Administration Record [facility] [address] [place] [address] Patient: CHAN JEFFRIES Visit ID: [id number] 56y, F Weight: 44.9 kg Height/Length: 61 in BMI: 18.7 ALLERGIES: Dilaudid, IV Contrast, Neurontin, Penicillins Given 12:28 04/09/2017 Mando Hidalgo R.N. Medication Administered: DUONEB [NEB TX] (IPRATROPIUM-ALBUTEROL), Dose: 1 unit dose Neb TX. Medication Ordered: DuoNeb Neb Tx 1 unit dose (NOW). Given 12:04/09/2017 Mando Hidalgo R.N. Medication Administered: SOLU-MEDROL [IVP] (METHYLPREDNISOLONE SODIUM SUCC), Dose: 125 mg IVP over 2 minute(s), Site: #1 right forearm. Medication Ordered: Solu-MEDROL IV 125 mg (NOW). Start 16:32 04/09/2017 Thompson Morrison R.N. Medication Administered: AZITHROMYCIN [IVPB], Dose: 500 mg IVPB over 60 minute(s), Rate: 250 mL/hr, Dispensed: 250 mL bag, Site: #2 left. Medication Ordered: Azithromycin IV 500 mg/250 mL (NOW). Start 16:53 04/09/2017 Mando Hidalgo R.N. Medication Administered: VANCOMYCIN [IVPB], Dose: 1 gm IVPB over 1 hour(s), Rate: 175 mL/hr, Dispensed: 200 mL bag, Site: #2 left. Medication Ordered: Vancomycin IV 1 gm/200mL (NOW).
--- NOTE | 2017-04-09 19:45 | ED DISCHARGE INSTRUCTIONS ---
Patient: CHAN JEFFRIES General Instructions [facility] VisitID: [id number] [address] [place] [address] 56y, F Registration Date/Time: 04/09/2017 Acute exacerbation of COPD. Bacterial and lobar pneumonia with hypoxemia and respiratory failure. Empiric antibiotics given in the ED. Hypercapnia. INSTRUCTIONS Follow-up: Screening today revealed the patient's blood pressure to be in the normal range. (Electronically signed by Ovidio Mcdowell Dr. 04/09/2017 19:45)
--- NOTE | 2017-04-09 19:45 | ED DISCHARGE INSTRUCTIONS ---
Patient: CHAN JEFFRIES General Instructions [facility] VisitID: [id number] [address] [place] [address] 56y, F Registration Date/Time: 04/09/2017 Acute exacerbation of COPD. Bacterial and lobar pneumonia with hypoxemia and respiratory failure. Empiric antibiotics given in the ED. Hypercapnia. INSTRUCTIONS Follow-up: Screening today revealed the patient's blood pressure to be in the normal range. (Electronically signed by Ovidio Mcdowell Dr. 04/09/2017 19:45)
== END 2017-04-09 17:45 | disposition short-term general hospital (02) ==
LOC: ED SRH 12:12
DX: J96.91 Respiratory failure, unspecified with hypoxia (principal); J96.92 Respiratory failure, unspecified with hypercapnia; J15.9 Unspecified bacterial pneumonia; J44.1 Chronic obstructive pulmonary disease with (acute) exacerbation; E03.9 Hypothyroidism, unspecified; Z79.899 Other long term (current) drug therapy; Z79.51 Long term (current) use of inhaled steroids; F17.290 Nicotine dependence, other tobacco product, uncomplicated; Z88.0 Allergy status to penicillin; Z91.041 Radiographic dye allergy status

== ENCOUNTER 2017-05-28 11:50 | Emergency (ER) | payer OTHER ==
--- NOTE | 2017-05-28 13:33 | ED ORDER SUMMARY ---
..... Patient: CHAN JEFFRIES OrderSheet [facility] VisitID: [id number] [place] [address] 57y, F Registration Date/Time: 05/28/2017 ORDER SHEET Weight: 41 kg (measured) Allergies: Dilaudid, IV Contrast, Neurontin, Penicillins GENERAL ORDERS: Chest 1V Urgent (11:56 05/28/2017 Trace Moreau) (Ack 12:04 PWeiler ER Tech1) (12:12 PWeiler ER Tech1) Lpn Medical Assistant (Continuous) (Respiratory Distress) (11:56 05/28/2017 Trace Moreau) (12:13 Kelvin R.NJermey) (12:19 PWeiler ER Tech1) CBC w Diff Urgent (11:57 05/28/2017 Trace Moreau) (Ack 12:04 PWeiler ER Tech1) (12:12 PWeiler ER Tech1) BMP Urgent (11:57 05/28/2017 Trace Moreau) (Ack 12:04 PWeiler ER Tech1) (12:12 PWeiler ER Tech1) PT with INR Urgent (11:57 05/28/2017 Trace Moreau) (Ack 12:04 PWeiler ER Tech1) (12:12 PWeiler ER Tech1) Lactate, Serum Urgent (11:57 05/28/2017 Trace Moreau) (Ack 12:04 PWeiler ER Tech1) (12:12 PWeiler ER Tech1) Pulse oximeter (11:57 05/28/2017 Trace Moreau) (12:13 Kelvin R.NJeremy) (12:19 PWeiisidoro ER Tech1) EKG - ER Stat (11:57 05/28/2017 Trace Moreau) (12:03 PWeiisidoro ER Tech1) MEDICATION ORDERS: Albuterol Neb Tx 7.5 mg (over an hour) (11:56 05/28/2017 Trace Moreau) (12:06 KEpting) Azithromycin PO 500 mg (NOW) (13:27 05/28/2017 Trace Moreau) (13:36 Kelvin R.NJeremy) IV FLUIDS: IV NS : initial bolus 500 mL (1000 mL/hr), then none - for X1 (NOW) (11:56 05/28/2017 Trace Moreau) (12:32 Kelvin Rowland) ORDER SHEET NOTES: [Electronically signed by Suzanne Fitch R.N. (14:08 05/28/2017)] [Electronically signed by Javier Mancini Dr. (07:37 05/30/2017)] [Electronically locked/signed by Suzanne Fitch R.N. (14:08 05/28/2017)]
--- NOTE | 2017-05-28 13:33 | ED ORDER SUMMARY ---
..... Patient: CHAN JEFFRIES OrderSheet [facility] VisitID: [id number] [place] [address] 57y, F Registration Date/Time: 05/28/2017 ORDER SHEET Weight: 41 kg (measured) Allergies: Dilaudid, IV Contrast, Neurontin, Penicillins GENERAL ORDERS: Chest 1V Urgent (11:56 05/28/2017 Trace Moreau) (Ack 12:04 PWeiler ER Tech1) (12:12 PWeiler ER Tech1) Skin Lifter Bacon (Continuous) (Respiratory Distress) (11:56 05/28/2017 Trace Moreau) (12:13 Kelvin R.NJeremy) (12:19 PWeiler ER Tech1) CBC w Diff Urgent (11:57 05/28/2017 Trace Moreau) (Ack 12:04 PWeiler ER Tech1) (12:12 PWeiler ER Tech1) BMP Urgent (11:57 05/28/2017 Trace Moreau) (Ack 12:04 PWeiler ER Tech1) (12:12 PWeiler ER Tech1) PT with INR Urgent (11:57 05/28/2017 Trace Moreau) (Ack 12:04 PWeiler ER Tech1) (12:12 PWeiler ER Tech1) Lactate, Serum Urgent (11:57 05/28/2017 Trace Moreau) (Ack 12:04 PWeiler ER Tech1) (12:12 PWeiler ER Tech1) Pulse oximeter (11:57 05/28/2017 Trace Moreau) (12:13 Kelvin R.NJeremy) (12:19 PWeiisidoro ER Tech1) EKG - ER Stat (11:57 05/28/2017 Trace Moreau) (12:03 PWeiisidoro ER Tech1) MEDICATION ORDERS: Albuterol Neb Tx 7.5 mg (over an hour) (11:56 05/28/2017 Trace Moreau) (12:06 KEpting) Azithromycin PO 500 mg (NOW) (13:27 05/28/2017 Trace Moreau) (13:36 Kelvin R.NJeremy) IV FLUIDS: IV NS : initial bolus 500 mL (1000 mL/hr), then none - for X1 (NOW) (11:56 05/28/2017 Trace Moreau) (12:32 Kelvin Rowland) ORDER SHEET NOTES: [Electronically signed by Suzanne Fitch R.N. (14:08 05/28/2017)] [Electronically signed by Javier Mancini Dr. (07:37 05/30/2017)] [Electronically locked/signed by Suzanne Fitch R.N. (14:08 05/28/2017)]
--- NOTE | 2017-05-28 13:33 | ED NURSING NOTES ---
Clinical Report - Nurses [facility] [address] [place] [address] 05/28/2017 11:51 [id number] TRI[facility] Triage time 11:53. Acuity: LEVEL 2. Chief Complaint: SHORTNESS OF BREATH and DIFFICULTY BREATHING. Alert. --12:03 Suzanne Fitch R.N. 11:53 05/28/17. BP: 141/90. HR: 107. RR: 26. O2 saturation: 100% on face mask at 6 liters/minute. Temp: 97.8 F (axillary). Pain level now: 0/10. --12:03 Suzanne Fitch R.N. Weight: 41 kg measured. Height/Length: 64 inches Per Patient. BMI: 15.5. --12:00 Suzanne Fitch R.N. Medications Albuterol Inhalation, as needed, 2 puffs every 6 hrs. Alendronate Sodium Oral 70mg, weekly. Combivent Respimat Inhalation (Aerosol Solution 20-100 mcg/act) 1 puff, 4 times a day. Cyclobenzaprine HCl Oral 10 mg, 3x a day as needed. DuoNeb. DuoNeb Inhalation. --11:56 Suzanne Fitch R.N. Gabapentin Oral 300 mg, 3x a day. Motrin Oral, as needed. Oxygen 1.5 L /nc at night only. PredniSONE Oral 40 mg, daily. ProAir HFA Inhalation. Qvar Inhalation (Aerosol Solution 80 mcg/act). TraMADol HCl Oral 50mg, daily as needed, Every 4 hours/6 tabs a day (for neck pain ). --11:56 Suzanne Fitch R.N. Allergies Dilaudid. IV Contrast. Neurontin. Penicillins. --11:56 Suzanne Fitch R.N. History Arrived by EMS. Historian: patient. Onset. (3 days). ( RT at bedside). Treatment SAP BASIS ARCHITECT: Administered oxygen and took breathing treatment. (increase home O2). Pre-hospital 12-lead EKG. ( duo neb, albuterol, 125 soulmedrol, zofran 4mg). PAST MEDICAL HX: Immunizations: up-to-date. SOCIAL HX: Former smoker. No alcohol use or drug use. FALL RISK ASSESSMENT: Fall risk assessment completed. No fall risk identified. NUTRITIONAL RISK ASSESSMENT: The nutritional risk assessment revealed no deficiencies. FUNCTIONAL ASSESSMENT: Functional assessment: no impairments noted. --12:03 Suzanne Fitch R.N. PROBLEMS: Colon Cancer. Degenerative Joint Disease. COPD. Pulmonary Emphysema. Chronic pain syndrome. Insomnia. Hyperthyroidism. Herpes Zoster. Back Pain. --11:57 Suzanne Fitch R.N. ADDITIONAL SURGERIES: Appendectomy. Back Surgery. Carpal Tunnel Surgery. Hysterectomy. --11:57 Suzanne Fitch R.N. Interventions ID band on patient. To room. --12:03 Suzanne Fitch R.N. 11:49 05/28/2017 Site #1 started via IV in the right forearm with an 22g angiocath. Saline lock flushed with 10 mL saline. --11:54 Suzanne Fitch R.N. PHYSICAL ASSESSMENT To room via stretcher. Patient gowned. GENERAL / NEURO / PSYCH: Alert. Oriented X 4. HEENT: Mucous membranes are pink. RESPIRATORY: Moderate respiratory distress. The patient can speak a few words at a time. Retractions. Clavicular and intercostal accessory muscle use. Chest nontender. CVS: Cardiac rhythm: sinus tachycardia. Capillary refill less than 2 seconds. GI / : Abdomen soft and nontender. SKIN: Skin is warm and dry. --12:04 Suzanne Fitch R.N. NURSING PROGRESS NOTES Two patient identifiers checked. Call light placed in reach. Side rails up x 1. Bed placed in lowest position. Brakes of bed on. Patient ready for evaluation- chart flagged. --12:04 Suzanne Fitch R.N. elderly caregiver, pulse oximeter, end tidal CO2 monitor and NIBP monitor placed on patient. Head of bed elevated 75 degrees. --12:04 Suzanne Fitch R.N. Portable chest x-ray. --12:05 Suzanne Fitch R.N. 12:06 05/28/2017 Albuterol Neb TX 1 unit dose given. --12:06 Yari Owen 12:06 05/28/2017 Site #2 started via IV in the left upper arm with an 20g angiocath, with aseptic technique and good blood return; two attempts. Blood drawn: rainbow set. Labeled in the presence of the patient and sent to the lab. Saline lock flushed with 10 mL saline. --12:07 Suzanne Fitch R.N. 12:07 05/28/17. BP: 167/95. HR: 108. RR: 22. O2 saturation: 100%. --12:07 Suzanne Fitch R.N. 12:17 05/28/2017 Started bag #1 500 mL IV Fluids IV NS (Saline); at 1000 mL/hr over 30 minute(s) via site #2 via IV pump. Allergies verified and confirmed 5 rights. IV patency established. IV site checked: no pain, redness, or swelling. IV flushed thoroughly pre- and post-medication administration. --12:32 Suzanne Fitch R.N. 12:33 05/28/17. BP: 169/85. HR: 103. RR: 19. O2 saturation: 100%. --12:33 Suzanne Fitch R.N. ( RT at bedside continuous Albuterol Neb treatment completed). --13:14 Suzanne Fitch R.N. 12:47 05/28/2017 IV Fluids IV NS Discontinued: bag #1 completed. Total amount infused: 500 mL. IV patency established. IV site checked: no pain, redness, or swelling. IV flushed thoroughly. --13:15 Suzanne Fitch R.N. 13:32 05/28/17. BP: 142/84. HR: 100. RR: 18. O2 saturation: 93% on nasal cannula at 3 liters/minute. --13:32 Suzanne Fitch R.N. 13:36 05/28/2017 Azithromycin PO Tablets 500 mg given. Allergies verified and confirmed 5 rights. --13:36 Suzanne Fitch R.N. 14:05 05/28/2017 Site #1 removed upon discharge. Catheter intact. Bandaid applied. --14:05 Suzanne Fitch R.N. 14:05 05/28/2017 Site #2 removed upon discharge. Catheter intact. Bandaid applied. --14:05 Suzanne Fitch R.N. DISPOSITION / DISCHARGE Departure time: 1355. ( RT sent patient home with [facility] oxygen tank). No learning barriers present. Discharge instructions provided and reviewed with the patient. Reviewed medication(s) information. Prescription(s) given to the patient. Patient verbalized understanding. Written instructions provided in Tuvaluan. The patient was discharged home and accompanied by chip applying machine tender. She left the Emergency Department in a wheelchair and via private vehicle. Splitter Hand driving. --14:04 Suzanne Fitch R.N. 14:02 05/28/17. BP: 127/82. HR: 100. RR: 20. O2 saturation: 93%. Temp: 98.1 F. Pain level now 0/10. --14:04 Suzanne Fitch R.N. Locked/Released at 05/28/2017 14:08 by Suzanne Fitch R.N.
--- NOTE | 2017-05-28 13:33 | ED CLINICAL REPORT ---
Clinical Report - Physicians/Mid Levels Located Within [facility] [address] [place] [address] 05/28/2017 11:51 Patient: CHAN JEFFRIES Arrived- By ambulance. Historian- patient. HISTORY OF PRESENT ILLNESS Chief Complaint: DYSPNEA and WHEEZING. This started past 3 days and is still present but is improving. It was abrupt in onset and has been constant but is not gone now. The dyspnea is described as moderate. The patient has had sputum production and a cough. See nurses notes for current asthma threapy (takes COPD meds). Similar symptoms previously: Many times. Recent medical care: Not recently seen/assessed. REVIEW OF SYSTEMS No palpitations, nausea, skin rash or vomiting. All systems otherwise negative, except as recorded above. PAST HISTORY See nurses notes. Medications: Gabapentin Oral 300 mg, 3x a day. Motrin Oral, as needed. Oxygen 1.5 L /nc at night only. PredniSONE Oral 40 mg, daily. ProAir HFA Inhalation. Qvar Inhalation (Aerosol Solution 80 mcg/act). TraMADol HCl Oral 50mg, daily as needed, Every 4 hours/6 tabs a day (for neck pain ). Albuterol Inhalation, as needed, 2 puffs every 6 hrs. Alendronate Sodium Oral 70mg, weekly. Combivent Respimat Inhalation (Aerosol Solution 20-100 mcg/act) 1 puff, 4 times a day. Cyclobenzaprine HCl Oral 10 mg, 3x a day as needed. DuoNeb. DuoNeb Inhalation. Allergies: Dilaudid. IV Contrast. Neurontin. Penicillins. SOCIAL HISTORY Smoker- current status unknown. No alcohol use or drug use. No recent travel. Is a local resident. ADDITIONAL NOTES The nursing notes have been reviewed. PHYSICAL EXAM Vital Signs: 05/28/2017 11:53 BP: 141/90. HR: 107. RR: 26. O2 saturation: 100%. Temp: 97.8 F. Pain level now: 0/10. Oxygen saturation normal. Appearance: Alert. Patient in mild distress. ENT: Ears normal. Nose normal. Pharynx normal. Uvula midline. Neck: Normal inspection. Neck supple. CVS: Normal heart rate and rhythm. Heart sounds normal. Pulses normal. Respiratory: Moderate respiratory distress with accessory muscle use and retractions. Expiratory moderate bilateral wheezes diffusely. Abdomen: Soft and nontender. No organomegaly. Skin: Skin warm and dry. Normal skin color. No rash. Normal skin turgor. Extremities: Extremities exhibit normal ROM. No lower extremity edema. LABS, X-RAYS, AND EKG EKG: No acute ischemia. Normal P waves. Normal JOLYNN. Normal QRS complex. Normal axis. Normal ST and T waves, QT and QTc. The study has been interpreted contemporaneously. The study has been independently viewed by me. The EKG appears to be a good tracing. Chest X-ray: (PROCEDURE: XR CHEST 1 VIEW INDICATION: COPD TECHNIQUE: Portable AP view 12:09 p.m. COMPARISON: Chest x-ray 04/09/2017. FINDINGS: Hyperinflation. Previously noted bibasilar infiltrates and right pleural effusion have resolved with residual right basilar scarring. There is a new small right upper lobe infiltrate. Stable prominent bilateral myrna. Heart size, mediastinum and pulmonary vessels are normal. Thorax is normal. IMPRESSION: 1. New small right upper lobe infiltrate 2. Resolved bibasilar infiltrates and small right pleural effusion. 3. COPD). The X-rays were independently viewed by me and interpreted by the radiologist. The X-rays were discussed with the radiologist (via phone and pacs). Laboratory Tests: CBC w Diff: (CÉSAR: 05/28/2017 12:09) ( MsgRcvd 05/28/2017 12:18) Final results Test Result Flag Units (Reference) WHITE BLOOD COUNT 12.1 H K/uL (4.5-11.5) RED BLOOD COUNT 5.05 M/uL (4.00-5.20) HEMOGLOBIN 14.6 gm/dL (12.0-16.0) HEMATOCRIT 47.0 H % (36.0-46.0) MEAN CELL VOLUME 93 fL (80-100) MEAN CORPUSCULAR HGB 29 pg (26-34) MEAN CORPUSCULAR HGB CONC 31 g/dL (31-37) RED CELL DISTRIBUTION WIDTH 14.0 % (11.6-14.8) PLATELET COUNT 194 K/uL (150-400) NEUTROPHIL % 70.3 % (50-75) LYMPH % 21.0 L % (25-40) MONO % 7.4 % (3-14) EOSINOPHIL % 1.0 % (0-4) BASOPHIL % 0.3 % (0-2) PT with INR: (CÉSAR: 05/28/2017 12:09) ( MsgRcvd 05/28/2017 12:25) Final results Test Result Flag Units (Reference) INR 0.9 (0.8-1.2) Low Intensity Therapy: INR 1.5-2.0 PT range 18.5-23.1Mod.Intensity Therapy: INR 2.0-3.0 PT range 23.1-31.5High Intensity Therapy: INR 2.5-3.5 PT range 27.4-35.5High Intensity Therapy 2: INR 3.0-4.0 PT range 31.5-39.3 BMP: (CÉSAR: 05/28/2017 12:09) ( FlgRcvd 05/28/2017 12:42) IP Test Result Flag Units (Reference) GLUCOSE 106 mg/dL (70-110) BUN 9 mg/dL (7-18) CREATININE 0.6 mg/dL (0.6-1.3) Estimated GFR >60 mL/min Estimated GFR- >60 mL/min Note: Persistent reduction over 3 months in eGFR<60 mL/min/1.73 m2 defines CKD. Patients with eGFR values>=60 mL/min/1.73 m2 may also have CKD if evidence ofpersistent proteinuria. Additional information may be foundat www.kidney.org. SODIUM 143 mmol/L (136-145) POTASSIUM 4.8 mmol/L (3.5-5.1) CHLORIDE 98 mmol/L (98-107) CALCIUM 9.2 mg/dL (8.5-10.1) . PROGRESS AND PROCEDURES Course of Care: Patient with COPD with likely exacerbation. patient with mild improvement. Will manage agressively and monitor closely. patient with improved symptoms while here in the ED. patient states she does not want to be admited. discussed with patient her work up in the ED including diagnosis, home care, followup, and return precautions. All questions answered. patient expressed understanding of these isntructions and was agreeable to them. Disposition: Discharged. Condition: good. CLINICAL IMPRESSION Acute exacerbation of COPD. Acute upper respiratory infection (acute). INSTRUCTIONS Warnings: GENERAL WARNINGS: Return or contact your physician immediately if your condition worsens or changes unexpectedly, if not improving as expected, or if other problems arise. Specifically return if pain, vomiting, bleeding, breathing difficulty or fever. Your Current Medications: CONTINUE TAKING THE FOLLOWING MEDICATIONS: Albuterol Inhalation : prn, 2 puffs every 6 hrs. Alendronate Sodium Oral : 70mg weekly. Combivent Respimat Inhalation : Aerosol Solution 20-100 mcg/act, 1 puff 4 times a day. Cyclobenzaprine HCl Oral : 10 mg 3x a day, prn. DuoNeb*. DuoNeb Inhalation. Gabapentin Oral : 300 mg 3x a day. Motrin Oral : prn. Oxygen 1.5 L /nc at night only*. PredniSONE Oral : 40 mg daily. ProAir HFA Inhalation. Qvar Inhalation : Aerosol Solution 80 mcg/act. TraMADol HCl Oral : 50mg daily, prn, Every 4 hours/6 tabs a day, for neck pain. Prescription Medications: Prednisone. Dispense sufficient quantity. No refills. (60 mg PO once daily for 5 days.) Zithromax Z-Javi: Take according to package instructions. OTC Medications: Benadryl (available over the counter): take according to label instructions. Claritin (available over the counter): take according to label instructions. Follow-up: Return to the emergency department as needed. Follow up with your doctor in three days. Reason for referral: recheck today's concerns. Summary of care provided to patient via paper. Screening today revealed the patient's blood pressure to be in the normal range. The patient should follow up with a primary care provider for blood pressure management. Understanding of the discharge instructions verbalized by patient. (Electronically signed by Javier Mancini Dr. 05/30/2017 7:37)
--- NOTE | 2017-05-28 13:33 | ED NURSING NOTES ---
Clinical Report - Nurses [facility] [address] [place] [address] 05/28/2017 11:51 [id number] Triage time 11:53. Acuity: LEVEL 2. Chief Complaint: SHORTNESS OF BREATH and DIFFICULTY BREATHING. Alert. --12:03 Suzanne Fitch R.N. 11:53 05/28/17. BP: 141/90. HR: 107. RR: 26. O2 saturation: 100% on face mask at 6 liters/minute. Temp: 97.8 F (axillary). Pain level now: 0/10. --12:03 Suzanne Fitch R.N. Weight: 41 kg measured. Height/Length: 64 inches Per Patient. BMI: 15.5. --12:00 Suzanne Fitch R.N. Medications Albuterol Inhalation, as needed, 2 puffs every 6 hrs. Alendronate Sodium Oral 70mg, weekly. Combivent Respimat Inhalation (Aerosol Solution 20-100 mcg/act) 1 puff, 4 times a day. Cyclobenzaprine HCl Oral 10 mg, 3x a day as needed. DuoNeb. DuoNeb Inhalation. --11:56 Suzanne Fitch R.N. Gabapentin Oral 300 mg, 3x a day. Motrin Oral, as needed. Oxygen 1.5 L /nc at night only. PredniSONE Oral 40 mg, daily. ProAir HFA Inhalation. Qvar Inhalation (Aerosol Solution 80 mcg/act). TraMADol HCl Oral 50mg, daily as needed, Every 4 hours/6 tabs a day (for neck pain ). --11:56 Suzanne Fitch R.N. Allergies Dilaudid. IV Contrast. Neurontin. Penicillins. --11:56 Suzanne Fitch R.N. History Arrived by EMS. Historian: patient. Onset. (3 days). ( RT at bedside). Treatment CHIEF LIBRARIAN WORK WITH BLIND: Administered oxygen and took breathing treatment. (increase home O2). Pre-hospital 12-lead EKG. ( duo neb, albuterol, 125 soulmedrol, zofran 4mg). PAST MEDICAL HX: Immunizations: up-to-date. SOCIAL HX: Former smoker. No alcohol use or drug use. FALL RISK ASSESSMENT: Fall risk assessment completed. No fall risk identified. NUTRITIONAL RISK ASSESSMENT: The nutritional risk assessment revealed no deficiencies. FUNCTIONAL ASSESSMENT: Functional assessment: no impairments noted. --12:03 Suzanne Fitch R.N. PROBLEMS: Colon Cancer. Degenerative Joint Disease. COPD. Pulmonary Emphysema. Chronic pain syndrome. Insomnia. Hyperthyroidism. Herpes Zoster. Back Pain. --11:57 Suzanne Fitch R.N. ADDITIONAL SURGERIES: Appendectomy. Back Surgery. Carpal Tunnel Surgery. Hysterectomy. --11:57 Suzanne Fitch R.N. Interventions ID band on patient. To room. --12:03 Suzanne Fitch R.N. 11:49 05/28/2017 Site #1 started via IV in the right forearm with an 22g angiocath. Saline lock flushed with 10 mL saline. --11:54 Suzanne Fitch R.N. PHYSICAL ASSESSMENT To room via stretcher. Patient gowned. GENERAL / NEURO / PSYCH: Alert. Oriented X 4. HEENT: Mucous membranes are pink. RESPIRATORY: Moderate respiratory distress. The patient can speak a few words at a time. Retractions. Clavicular and intercostal accessory muscle use. Chest nontender. CVS: Cardiac rhythm: sinus tachycardia. Capillary refill less than 2 seconds. GI / : Abdomen soft and nontender. SKIN: Skin is warm and dry. --12:04 Suzanne Fitch R.N. NURSING PROGRESS NOTES Two patient identifiers checked. Call light placed in reach. Side rails up x 1. Bed placed in lowest position. Brakes of bed on. Patient ready for evaluation- chart flagged. --12:04 Suzanne Fitch R.N. threat monitoring analyst, pulse oximeter, end tidal CO2 monitor and NIBP monitor placed on patient. Head of bed elevated 75 degrees. --12:04 Suzanne Fitch R.N. Portable chest x-ray. --12:05 Suzanne Fitch R.N. 12:06 05/28/2017 Albuterol Neb TX 1 unit dose given. --12:06 Yari Owen 12:06 05/28/2017 Site #2 started via IV in the left upper arm with an 20g angiocath, with aseptic technique and good blood return; two attempts. Blood drawn: rainbow set. Labeled in the presence of the patient and sent to the lab. Saline lock flushed with 10 mL saline. --12:07 Suzanne Fitch R.N. 12:07 05/28/17. BP: 167/95. HR: 108. RR: 22. O2 saturation: 100%. --12:07 Suzanne Fitch R.N. 12:17 05/28/2017 Started bag #1 500 mL IV Fluids IV NS (Saline); at 1000 mL/hr over 30 minute(s) via site #2 via IV pump. Allergies verified and confirmed 5 rights. IV patency established. IV site checked: no pain, redness, or swelling. IV flushed thoroughly pre- and post-medication administration. --12:32 Suzanne Fitch R.N. 12:33 05/28/17. BP: 169/85. HR: 103. RR: 19. O2 saturation: 100%. --12:33 Suzanne Fitch R.N. ( RT at bedside continuous Albuterol Neb treatment completed). --13:14 Suzanne Fitch R.N. 12:47 05/28/2017 IV Fluids IV NS Discontinued: bag #1 completed. Total amount infused: 500 mL. IV patency established. IV site checked: no pain, redness, or swelling. IV flushed thoroughly. --13:15 Suzanne Fitch R.N. 13:32 05/28/17. BP: 142/84. HR: 100. RR: 18. O2 saturation: 93% on nasal cannula at 3 liters/minute. --13:32 Suzanne Fitch R.N. 13:36 05/28/2017 Azithromycin PO Tablets 500 mg given. Allergies verified and confirmed 5 rights. --13:36 Suzanne Fitch R.N. 14:05 05/28/2017 Site #1 removed upon discharge. Catheter intact. Bandaid applied. --14:05 Suzanne Fitch R.N. 14:05 05/28/2017 Site #2 removed upon discharge. Catheter intact. Bandaid applied. --14:05 Suzanne Fitch R.N. DISPOSITION / DISCHARGE Departure time: 1355. ( RT sent patient home with [facility] oxygen tank). No learning barriers present. Discharge instructions provided and reviewed with the patient. Reviewed medication(s) information. Prescription(s) given to the patient. Patient verbalized understanding. Written instructions provided in Latvian. The patient was discharged home and accompanied by professor of oceanography. She left the Emergency Department in a wheelchair and via private vehicle. Supervisor [employer] driving. --14:04 Suzanne Fitch R.N. 14:02 05/28/17. BP: 127/82. HR: 100. RR: 20. O2 saturation: 93%. Temp: 98.1 F. Pain level now 0/10. --14:04 Suzanne Fitch R.N. Locked/Released at 05/28/2017 14:08 by Suzanne Fitch R.N.
--- NOTE | 2017-05-28 13:40 | DIAGNOSTIC IMAGING REPORT ---
PROCEDURE: XR CHEST 1 VIEW INDICATION: COPD TECHNIQUE: Portable AP view 12:09 p.m. COMPARISON: Chest x-ray 04/09/2017. FINDINGS: Hyperinflation. Previously noted bibasilar infiltrates and right pleural effusion have resolved with residual right basilar scarring. There is a new small right upper lobe infiltrate. Stable prominent bilateral myrna. Heart size, mediastinum and pulmonary vessels are normal. Thorax is normal. IMPRESSION: 1. New small right upper lobe infiltrate 2. Resolved bibasilar infiltrates and small right pleural effusion. 3. COPD 4. Results discussed with Dr. Mancini
--- NOTE | 2017-05-30 07:37 | ED MAR SUMMARY ---
..... Medication Administration Record [facility] [address] [place] [address] Patient: CHAN JEFFRIES Visit ID: [id number] 57y, F Weight: 41.0 kg Height/Length: 64 in BMI: 15.5 ALLERGIES: Dilaudid, IV Contrast, Neurontin, Penicillins Given 12:06 05/28/2017 Yari Owen, Medication Administered: ALBUTEROL [NEB TX], Dose: 1 unit dose Neb TX. Medication Ordered: Albuterol Neb Tx 7.5 mg (over an hour). Start 12:17 05/28/2017 Suzanne Fitch R.N., Stop 12:47 05/28/2017 Suzanne Fitch R.N. Medication Administered: IV NS (SALINE), Dose: IV Fluids over 30 minute(s), Rate: 1000 mL/hr, Dispensed: 500 mL bag, Site: #2 left upper arm. Medication Ordered: IV NS : initial bolus 500 mL (1000 mL/hr), then none - for X1 (NOW). Given 13:36 05/28/2017 Suzanne Fitch R.N. Medication Administered: AZITHROMYCIN [PO], Dose: 500 mg Tablets PO. Medication Ordered: Azithromycin PO 500 mg (NOW).
--- NOTE | 2017-05-30 07:37 | ED DISCHARGE INSTRUCTIONS ---
Patient: CHAN JEFFRIES General Instructions [facility] VisitID: [id number] [place] [address] 57y, F Registration Date/Time: 05/28/2017 Acute exacerbation of COPD. Acute upper respiratory infection (acute). INSTRUCTIONS Warnings: GENERAL WARNINGS: Return or contact your physician immediately if your condition worsens or changes unexpectedly, if not improving as expected, or if other problems arise. Specifically return if pain, vomiting, bleeding, breathing difficulty or fever. Your Current Medications: CONTINUE TAKING THE FOLLOWING MEDICATIONS: Albuterol Inhalation : prn, 2 puffs every 6 hrs. Alendronate Sodium Oral : 70mg weekly. Combivent Respimat Inhalation : Aerosol Solution 20-100 mcg/act, 1 puff 4 times a day. Cyclobenzaprine HCl Oral : 10 mg 3x a day, prn. DuoNeb*. DuoNeb Inhalation. Gabapentin Oral : 300 mg 3x a day. Motrin Oral : prn. Oxygen 1.5 L /nc at night only*. PredniSONE Oral : 40 mg daily. ProAir HFA Inhalation. Qvar Inhalation : Aerosol Solution 80 mcg/act. TraMADol HCl Oral : 50mg daily, prn, Every 4 hours/6 tabs a day, for neck pain. Prescription Medications: Prednisone. Dispense sufficient quantity. No refills. (60 mg PO once daily for 5 days.) Zithromax Z-Javi: Take according to package instructions. OTC Medications: Benadryl (available over the counter): take according to label instructions. Claritin (available over the counter): take according to label instructions. Follow-up: Return to the emergency department as needed. Follow up with your doctor in three days. Reason for referral: recheck today's concerns. Summary of care provided to patient via paper. Screening today revealed the patient's blood pressure to be in the normal range. The patient should follow up with a primary care provider for blood pressure management. Understanding of the discharge instructions verbalized by patient. ADDITIONAL INFORMATION COPD Flare Both emphysema and chronic bronchitis are forms of chronic obstructive pulmonary disease (COPD). It is most often caused by many years of smoking tobacco. Many things can make your lung disease suddenly get worse. These causes include the common cold, pneumonia, acute bronchitis, missing doses of your regular breathing medicines, or being around smoke, dust, or other air pollutants. A COPD flare may last 7 to 14 days. Your doctor may prescribe medicineto relax your airways and prevent wheezing. Your doctor may also prescribe antibiotics if he or she thinks you havea bacterial infection. Prednisone can helpease inflammation in a severe attack. Home care Here are things you can do at home: Drink lots of water or other fluids (at least 10 glasses a day) during an attack. This will loosen lung secretions and make it easier to breathe. If you have heart or kidney disease, check with your doctor before you drink extra amounts of fluids. Take prescribed medicine exactly at the times advised. If you have a hand-held inhaler or aerosol breathing medicine, don't use it more than once every 4 hours, unless your doctor tells you to. If you were givenan antibiotic or prednisone, take all of the medicine even if you are feeling better after a few days. Don't smoke. Avoid being aroundthe smoke of others. If you were given an inhaler, use it exactly as directed. If you need to use it more often than prescribed, your condition may be getting worse. Call your doctor. Follow-up care Follow up with your health care provider.If you are 65 or older or have chronic asthma or COPD, you should get a single dose of the pneumococcal vaccine and aflu shot each year. You may need a second dose of the pneumococcal vaccine if you had the first dose at a younger age. Your health care provider will let you know if you need a second dose. For all other people, the usual dose for the pneumococcal vaccine is 1 or 2 shots. Yourprovider can discuss this with you. When to seek medical care Get prompt medical attention ifany of these occur: Increased wheezing or shortness of breath Need to use your inhalers more often than usual without relief Fever of 100.4F(38C) or higher, or as directed by your health care provider Coughing up lots of dark-colored or bloody sputum (mucus) Chest pain with each breath You do not start to improve within 24 hours Prednisone Oral tablet What is this medicine? PREDNISONE (PRED ni sone) is a corticosteroid. It is commonly used to treat inflammation of the skin, joints, lungs, and other organs. Common conditions treated include asthma, allergies, and arthritis. It is also used for other conditions, such as blood disorders and diseases of the adrenal glands. How should I use this medicine? Take this medicine by mouth with a glass of water. Follow the directions on the prescription label. Take this medicine with food. If you are taking this medicine once a day, take it in the morning. Do not take more medicine than you are told to take. Do not suddenly stop taking your medicine because you may develop a severe reaction. Your doctor will tell you how much medicine to take. If your doctor wants you to stop the medicine, the dose may be slowly lowered over time to avoid any side effects. Talk to your nurse obgyn regarding the use of this medicine in children. Special care may be needed. What side effects may I notice from receiving this medicine? Side effects that you should report to your doctor or health animal care assistant as soon as possible: allergic reactions like skin rash, itching or hives, swelling of the face, lips, or tongue changes in emotions or moods changes in vision depressed mood eye pain fever or chills, cough, sore throat, pain or difficulty passing urine increased thirst swelling of ankles, feet Side effects that usually do not require medical attention (report to your doctor or health animal care assistant if they continue or are bothersome): confusion, excitement, restlessness headache nausea, vomiting skin problems, acne, thin and shiny skin trouble sleeping weight gain What may interact with this medicine? Do not take this medicine with any of the following medications: metyrapone mifepristone This medicine may also interact with the following medications: aminoglutethimide amphotericin B aspirin and aspirin-like medicines barbiturates certain medicines for diabetes, like glipizide or glyburide cholestyramine cholinesterase inhibitors cyclosporine digoxin diuretics ephedrine female hormones, like estrogens and control pills isoniazid ketoconazole NSAIDS, medicines for pain and inflammation, like ibuprofen or naproxen phenytoin rifampin toxoids vaccines warfarin What if I miss a dose? If you miss a dose, take it as soon as you can. If it is almost time for your next dose, talk to your doctor or health animal care assistant. You may need to miss a dose or take an extra dose. Do not take double or extra doses without advice. Where should I keep my medicine? Keep out of the reach of children. Store at room temperature between 15 and 30 degrees C (59 and 86 degrees F). Protect from light. Keep container tightly closed. Throw away any unused medicine after the expiration date. What should I tell my health care provider before I take this medicine? They need to know if you have any of these conditions: Katlyn's syndrome diabetes glaucoma heart disease high blood pressure infection (especially a virus infection such as chickenpox, cold sores, or herpes) kidney disease liver disease mental illness myasthenia gravis osteoporosis seizures stomach or intestine problems thyroid disease an unusual or allergic reaction to lactose, prednisone, other medicines, foods, dyes, or preservatives or trying to get breast-feeding What should I watch for while using this medicine? Visit your doctor or health animal care assistant for regular checks on your progress. If you are taking this medicine over a prolonged period, carry an identification card with your name and address, the type and dose of your medicine, and your doctor's name and address. This medicine may increase your risk of getting an infection. Tell your doctor or health animal care assistant if you are around anyone with measles or chickenpox, or if you develop sores or blisters that do not heal properly. If you are going to have surgery, tell your doctor or health animal care assistant that you have taken this medicine within the last twelve months. Ask your doctor or health animal care assistant about your diet. You may need to lower the amount of salt you eat. This medicine may affect blood sugar levels. If you have diabetes, check with your doctor or health animal care assistant before you change your diet or the dose of your diabetic medicine. You have been given the following additional information: COPD Flare Prednisone Oral tablet (Electronically signed by Javier Mancini Dr. 05/30/2017 7:37)
--- NOTE | 2017-05-30 07:37 | ED MAR SUMMARY ---
..... Medication Administration Record [facility] [address] [place] [address] Patient: CHAN JEFFRIES Visit ID: [id number] 57y, F Weight: 41.0 kg Height/Length: 64 in BMI: 15.5 ALLERGIES: Dilaudid, IV Contrast, Neurontin, Penicillins Given 12:06 05/28/2017 Yari Owen, Medication Administered: ALBUTEROL [NEB TX], Dose: 1 unit dose Neb TX. Medication Ordered: Albuterol Neb Tx 7.5 mg (over an hour). Start 12:17 05/28/2017 Suzanne Fitch R.N., Stop 12:47 05/28/2017 Suzanne Fitch R.N. Medication Administered: IV NS (SALINE), Dose: IV Fluids over 30 minute(s), Rate: 1000 mL/hr, Dispensed: 500 mL bag, Site: #2 left upper arm. Medication Ordered: IV NS : initial bolus 500 mL (1000 mL/hr), then none - for X1 (NOW). Given 13:36 05/28/2017 Suzanne Fitch R.N. Medication Administered: AZITHROMYCIN [PO], Dose: 500 mg Tablets PO. Medication Ordered: Azithromycin PO 500 mg (NOW).
--- NOTE | 2017-05-30 07:37 | ED MED RECONCILIATION SUMMARY ---
Patient: CHAN JEFFRIES Medication Reconciliation Report [facility] VisitID: [id number] [address] [place] [address] 57y, F Registration Date/Time: 05/28/2017 Weight: 41 kg Height/Length: 64 in. BMI: 15.5 ALLERGIES: Dilaudid, IV Contrast, Neurontin, Penicillins The patient's Home Medications are listed below: CONTINUE TAKING THE FOLLOWING MEDICATIONS: Albuterol Inhalation, 2 puffs every 6 hrs Alendronate Sodium Oral 70mg, weekly Combivent Respimat Inhalation (20-100 mcg/act) 1 puff, 4 times a day Cyclobenzaprine HCl Oral 10 mg, 3x a day DuoNeb DuoNeb Inhalation Gabapentin Oral 300 mg, 3x a day Motrin Oral Oxygen 1.5 L /nc at night only PredniSONE Oral 40 mg, daily ProAir HFA Inhalation Qvar Inhalation (80 mcg/act) TraMADol HCl Oral 50mg, daily, Every 4 hours/6 tabs a day, for neck pain The source(s) of the original Home Medication information: Not obtained. The following Medications were given to the patient in the Emergency Department: Albuterol [Neb Tx] Neb TX 1 unit dose, administered: 05/28/2017 12:06:00 PM IV NS IV Fluids bolus 0, then 1000 mL/hr, administered: 05/28/2017 12:17:00 PM Azithromycin [PO] PO 500 mg, administered: 05/28/2017 1:36:00 PM The following Medications were prescribed to the patient: Prednisone. Dispense sufficient quantity. No refills.(60 mg PO once daily for 5 days.) -- Javier Mancini Dr. Zithromax Z-Javi: Take according to package instructions. -- Javier Mancini Dr. Benadryl (available over the counter): take according to label instructions. -- Javier Mancini Dr. Claritin (available over the counter): take according to label instructions. -- Javier Mancini Dr.
--- NOTE | 2017-05-30 07:37 | ED DISCHARGE INSTRUCTIONS ---
Patient: CHAN JEFFRIES General Instructions [facility] VisitID: [id number] [place] [address] 57y, F Registration Date/Time: 05/28/2017 Acute exacerbation of COPD. Acute upper respiratory infection (acute). INSTRUCTIONS Warnings: GENERAL WARNINGS: Return or contact your physician immediately if your condition worsens or changes unexpectedly, if not improving as expected, or if other problems arise. Specifically return if pain, vomiting, bleeding, breathing difficulty or fever. Your Current Medications: CONTINUE TAKING THE FOLLOWING MEDICATIONS: Albuterol Inhalation : prn, 2 puffs every 6 hrs. Alendronate Sodium Oral : 70mg weekly. Combivent Respimat Inhalation : Aerosol Solution 20-100 mcg/act, 1 puff 4 times a day. Cyclobenzaprine HCl Oral : 10 mg 3x a day, prn. DuoNeb*. DuoNeb Inhalation. Gabapentin Oral : 300 mg 3x a day. Motrin Oral : prn. Oxygen 1.5 L /nc at night only*. PredniSONE Oral : 40 mg daily. ProAir HFA Inhalation. Qvar Inhalation : Aerosol Solution 80 mcg/act. TraMADol HCl Oral : 50mg daily, prn, Every 4 hours/6 tabs a day, for neck pain. Prescription Medications: Prednisone. Dispense sufficient quantity. No refills. (60 mg PO once daily for 5 days.) Zithromax Z-Javi: Take according to package instructions. OTC Medications: Benadryl (available over the counter): take according to label instructions. Claritin (available over the counter): take according to label instructions. Follow-up: Return to the emergency department as needed. Follow up with your doctor in three days. Reason for referral: recheck today's concerns. Summary of care provided to patient via paper. Screening today revealed the patient's blood pressure to be in the normal range. The patient should follow up with a primary care provider for blood pressure management. Understanding of the discharge instructions verbalized by patient. ADDITIONAL INFORMATION COPD Flare Both emphysema and chronic bronchitis are forms of chronic obstructive pulmonary disease (COPD). It is most often caused by many years of smoking tobacco. Many things can make your lung disease suddenly get worse. These causes include the common cold, pneumonia, acute bronchitis, missing doses of your regular breathing medicines, or being around smoke, dust, or other air pollutants. A COPD flare may last 7 to 14 days. Your doctor may prescribe medicineto relax your airways and prevent wheezing. Your doctor may also prescribe antibiotics if he or she thinks you havea bacterial infection. Prednisone can helpease inflammation in a severe attack. Home care Here are things you can do at home: Drink lots of water or other fluids (at least 10 glasses a day) during an attack. This will loosen lung secretions and make it easier to breathe. If you have heart or kidney disease, check with your doctor before you drink extra amounts of fluids. Take prescribed medicine exactly at the times advised. If you have a hand-held inhaler or aerosol breathing medicine, don't use it more than once every 4 hours, unless your doctor tells you to. If you were givenan antibiotic or prednisone, take all of the medicine even if you are feeling better after a few days. Don't smoke. Avoid being aroundthe smoke of others. If you were given an inhaler, use it exactly as directed. If you need to use it more often than prescribed, your condition may be getting worse. Call your doctor. Follow-up care Follow up with your health care provider.If you are 65 or older or have chronic asthma or COPD, you should get a single dose of the pneumococcal vaccine and aflu shot each year. You may need a second dose of the pneumococcal vaccine if you had the first dose at a younger age. Your health care provider will let you know if you need a second dose. For all other people, the usual dose for the pneumococcal vaccine is 1 or 2 shots. Yourprovider can discuss this with you. When to seek medical care Get prompt medical attention ifany of these occur: Increased wheezing or shortness of breath Need to use your inhalers more often than usual without relief Fever of 100.4F(38C) or higher, or as directed by your health care provider Coughing up lots of dark-colored or bloody sputum (mucus) Chest pain with each breath You do not start to improve within 24 hours Prednisone Oral tablet What is this medicine? PREDNISONE (PRED ni sone) is a corticosteroid. It is commonly used to treat inflammation of the skin, joints, lungs, and other organs. Common conditions treated include asthma, allergies, and arthritis. It is also used for other conditions, such as blood disorders and diseases of the adrenal glands. How should I use this medicine? Take this medicine by mouth with a glass of water. Follow the directions on the prescription label. Take this medicine with food. If you are taking this medicine once a day, take it in the morning. Do not take more medicine than you are told to take. Do not suddenly stop taking your medicine because you may develop a severe reaction. Your doctor will tell you how much medicine to take. If your doctor wants you to stop the medicine, the dose may be slowly lowered over time to avoid any side effects. Talk to your environmental air specialist regarding the use of this medicine in children. Special care may be needed. What side effects may I notice from receiving this medicine? Side effects that you should report to your doctor or health college and career counselor as soon as possible: allergic reactions like skin rash, itching or hives, swelling of the face, lips, or tongue changes in emotions or moods changes in vision depressed mood eye pain fever or chills, cough, sore throat, pain or difficulty passing urine increased thirst swelling of ankles, feet Side effects that usually do not require medical attention (report to your doctor or health college and career counselor if they continue or are bothersome): confusion, excitement, restlessness headache nausea, vomiting skin problems, acne, thin and shiny skin trouble sleeping weight gain What may interact with this medicine? Do not take this medicine with any of the following medications: metyrapone mifepristone This medicine may also interact with the following medications: aminoglutethimide amphotericin B aspirin and aspirin-like medicines barbiturates certain medicines for diabetes, like glipizide or glyburide cholestyramine cholinesterase inhibitors cyclosporine digoxin diuretics ephedrine female hormones, like estrogens and control pills isoniazid ketoconazole NSAIDS, medicines for pain and inflammation, like ibuprofen or naproxen phenytoin rifampin toxoids vaccines warfarin What if I miss a dose? If you miss a dose, take it as soon as you can. If it is almost time for your next dose, talk to your doctor or health college and career counselor. You may need to miss a dose or take an extra dose. Do not take double or extra doses without advice. Where should I keep my medicine? Keep out of the reach of children. Store at room temperature between 15 and 30 degrees C (59 and 86 degrees F). Protect from light. Keep container tightly closed. Throw away any unused medicine after the expiration date. What should I tell my health care provider before I take this medicine? They need to know if you have any of these conditions: Katlyn's syndrome diabetes glaucoma heart disease high blood pressure infection (especially a virus infection such as chickenpox, cold sores, or herpes) kidney disease liver disease mental illness myasthenia gravis osteoporosis seizures stomach or intestine problems thyroid disease an unusual or allergic reaction to lactose, prednisone, other medicines, foods, dyes, or preservatives or trying to get breast-feeding What should I watch for while using this medicine? Visit your doctor or health college and career counselor for regular checks on your progress. If you are taking this medicine over a prolonged period, carry an identification card with your name and address, the type and dose of your medicine, and your doctor's name and address. This medicine may increase your risk of getting an infection. Tell your doctor or health college and career counselor if you are around anyone with measles or chickenpox, or if you develop sores or blisters that do not heal properly. If you are going to have surgery, tell your doctor or health college and career counselor that you have taken this medicine within the last twelve months. Ask your doctor or health college and career counselor about your diet. You may need to lower the amount of salt you eat. This medicine may affect blood sugar levels. If you have diabetes, check with your doctor or health college and career counselor before you change your diet or the dose of your diabetic medicine. You have been given the following additional information: COPD Flare Prednisone Oral tablet (Electronically signed by Javier Mancini Dr. 05/30/2017 7:37)
--- NOTE | 2017-05-30 07:37 | ED MED RECONCILIATION SUMMARY ---
Patient: CHAN JEFFRIES Medication Reconciliation Report [facility] VisitID: [id number] [address] [place] [address] 57y, F Registration Date/Time: 05/28/2017 Weight: 41 kg Height/Length: 64 in. BMI: 15.5 ALLERGIES: Dilaudid, IV Contrast, Neurontin, Penicillins The patient's Home Medications are listed below: CONTINUE TAKING THE FOLLOWING MEDICATIONS: Albuterol Inhalation, 2 puffs every 6 hrs Alendronate Sodium Oral 70mg, weekly Combivent Respimat Inhalation (20-100 mcg/act) 1 puff, 4 times a day Cyclobenzaprine HCl Oral 10 mg, 3x a day DuoNeb DuoNeb Inhalation Gabapentin Oral 300 mg, 3x a day Motrin Oral Oxygen 1.5 L /nc at night only PredniSONE Oral 40 mg, daily ProAir HFA Inhalation Qvar Inhalation (80 mcg/act) TraMADol HCl Oral 50mg, daily, Every 4 hours/6 tabs a day, for neck pain The source(s) of the original Home Medication information: Not obtained. The following Medications were given to the patient in the Emergency Department: Albuterol [Neb Tx] Neb TX 1 unit dose, administered: 05/28/2017 12:06:00 PM IV NS IV Fluids bolus 0, then 1000 mL/hr, administered: 05/28/2017 12:17:00 PM Azithromycin [PO] PO 500 mg, administered: 05/28/2017 1:36:00 PM The following Medications were prescribed to the patient: Prednisone. Dispense sufficient quantity. No refills.(60 mg PO once daily for 5 days.) -- Javier Mancini Dr. Zithromax Z-Javi: Take according to package instructions. -- Javier Mancini Dr. Benadryl (available over the counter): take according to label instructions. -- Javier Mancini Dr. Claritin (available over the counter): take according to label instructions. -- Javier Mancini Dr.
== END 2017-05-28 13:55 | disposition home or self-care (01) ==
LOC: ED SRH 11:50
DX: J44.1 Chronic obstructive pulmonary disease with (acute) exacerbation (principal); J06.9 Acute upper respiratory infection, unspecified; Z79.51 Long term (current) use of inhaled steroids; Z79.52 Long term (current) use of systemic steroids; Z79.899 Other long term (current) drug therapy; Z88.0 Allergy status to penicillin; Z99.81 Dependence on supplemental oxygen; Z88.8 Allergy status to other drugs, medicaments and biological substances; Z88.5 Allergy status to narcotic agent; Z91.041 Radiographic dye allergy status
CPT/HCPCS: 90047; 92031; 94060; 95059